=== PATIENT | male | born 1970 | race Caucasian/White ===

== ENCOUNTER 2018-08-26 09:50 | Emergency (ER) | payer MEDICAID, OTHER ==
[~2018-08-26] VITALS: Ht 188 cm; Wt 102.9 kg
[~2018-08-26 09:50] MED LIST: CLIN300C85 PO; HYDR-3964 PO; HYDR-4383 PO
[2018-08-26] MEDS ORDERED: CLIN150C2 PO (10:51)
[2018-08-26] MEDS ORDERED: ketorolac trometh inj. 60 MG/2 ML VIAL IM ONE (10:55)
[2018-08-26 11:11] VITALS: BP 138/94
== END 2018-08-26 11:12 | disposition home or self-care (01) ==
LOC: ER 09:50
DX: L02.211 Cutaneous abscess of abdominal wall (principal); L73.8 Other specified follicular disorders; J45.909 Unspecified asthma, uncomplicated; Z86.14 Personal history of Methicillin resistant Staphylococcus aureus infection; Z79.899 Other long term (current) drug therapy
CPT/HCPCS: 10060; 96372; 99283; J1885

== ENCOUNTER 2019-11-28 01:01 | Emergency (ER) | payer MEDICAID, OTHER ==
[~2019-11-28] VITALS: Ht 188 cm; Wt 100.0 kg
[~2019-11-28 01:01] MED LIST changes: +CLIN-97 PO; -CLIN300C85 PO
[2019-11-28 01:30] VITALS: BP 131/90
[2019-11-28] MEDS ORDERED: ondansetron 4mg rapidly disintigrating tab PO ONE (02:05)
[2019-11-28] MEDS ORDERED: HYDROcodone/acetaminophen 10/325mg tab PO ONE (02:05)
[2019-11-28] MEDS ORDERED: HYDR-3965 PO (02:53)
[2019-11-28] MEDS ORDERED: ONDA4TAB6 PO (02:53)
[2019-11-29] MEDS ORDERED: HYDR-3965 PO (23:36)
[2019-11-29] MEDS ORDERED: ONDA-103 PO (23:36)
== END 2019-11-28 03:38 | disposition home or self-care (01) ==
LOC: ER 01:02
DX: M53.3 Sacrococcygeal disorders, not elsewhere classified (principal); J45.909 Unspecified asthma, uncomplicated; Z86.14 Personal history of Methicillin resistant Staphylococcus aureus infection; Z72.89 Other problems related to lifestyle; Z79.2 Long term (current) use of antibiotics; Z79.899 Other long term (current) drug therapy
CPT/HCPCS: 72131; 72192; 99285

== ENCOUNTER 2019-11-29 21:31 | Emergency (ER) | payer MEDICAID, OTHER ==
[~2019-11-29] VITALS: Ht 188 cm; Wt 100.0 kg
[~2019-11-29 21:31] MED LIST changes: +HYDR-3965 PO; +ONDA4TAB6 PO
--- NOTE | 2019-11-29 22:18 | NUR ---
Pt reports that fever and cough started today. He denies being exposed to anyone sick recently and denies COVID-19 exposure. He states he has been staying at home in [place]. CRN informed of fever and cough, hepa filter placed in room and set to negative pressure. Door was closed.
[2019-11-29] MEDS ORDERED: normal saline 1000ML IV soln IV ONE (22:50)
[2019-11-29] MEDS ORDERED: ibuprofen tablet 400 MG TABLET PO ONE (23:20)
[2019-11-29 23:26] LABS: BASOPHILS % (AUTO) 0.1 % (0-1); EOSINOPHILS # (AUTO) 0.1 X10'3 (0-0.9); EOSINOPHILS % (AUTO) 0.7 % (0-6); HEMATOCRIT 38.5 % (42.0-52.0); HEMOGLOBIN 13.1 g/dl (14.0-17.9); LYMPHOCYTES # (AUTO) 0.4 X10'3 (1.1-4.8); LYMPHOCYTES % (AUTO) 2.5 % (21-51); MEAN CORPUSCULAR HGB CONC 33.9 g/dL (33.0-36.5); MEAN CORPUSCULAR VOLUME 91.5 FL (78-98); MEAN PLATELET VOLUME 6.1 FL (7.4-10.4); MONOCYTES % (AUTO) 6.8 % (2-12); NEUTROPHILS # (AUTO) 13.5 X10'3 (1.8-7.7); NEUTROPHILS % (AUTO) 89.9 % (42-75); PLATELET COUNT 383 X10'3 (140-440); RED BLOOD COUNT 4.21 X10'6 (4.70-6.10); RED CELL DISTRIBUTION WIDTH 13.7 % (11.5-14.5)
[2019-11-29 23:32] LABS: CLARITY,URINE CLEAR (Clear); COLOR,URINE YELLOW (Yellow); GLUCOSE, URINE NEGATIVE (Neg); KETONES,URINE NEGATIVE (Neg); LEUKOCYTE ESTERASE ,URINE NEGATIVE (Neg); NITRITES, URINE NEGATIVE (Neg); OCCULT BLOOD,URINE NEGATIVE (Neg); PH,URINE 6.5 (4.8-8.0); PROTEIN,URINE TRACE mg/dl (Neg); UROBILINOGEN,URINE >=8.0 E.U/dL (0.2-1.0)
[2019-11-29] MEDS ORDERED: ONDA-103 PO (23:36)
[2019-11-29] MEDS ORDERED: HYDR-3965 PO (23:36)
[2019-11-29 23:38] LABS: UA COLLECTION TYPE URINAL
[2019-11-29 23:40] LABS: BACTERIA,URINE NONE SEEN /HPF (Neg); RBC,URINE 0-2 /HPF (0-2); SQUAMOUS EPITHELIAL CELL,UR FEW /LPF (FEW); WBC,URINE 0-4 /HPF (0-4)
[2019-11-29 23:41] LABS: ALANINE AMINOTRANSFERASE 24 U/L (12-78); ALBUMIN 2.4 G/DL (3.4-5.0); ALBUMIN/GLOBULIN RATIO 0.5 (1.1-1.5); ALKALINE PHOSPHATASE 103 IU/L (46-116); ANION GAP 7 (8-16); ASPARTATE AMINO TRANSFERASE 18 U/L (10-37); BILIRUBIN,TOTAL 0.4 MG/DL (0.1-1.0); BLOOD UREA NITROGEN 13 MG/DL (7-18); BUN/CREATININE RATIO 14.1 (5.4-32.0); CALCIUM 8.3 MG/DL (8.5-10.1); CHLORIDE 98 MMOL/L (99-107); CREATININE 0.92 MG/DL (0.60-1.10); GLUCOSE 116 MG/DL (70-104); SODIUM 133 MMOL/L (135-145); TOTAL CARBON DIOXIDE 28.2 MMOL/L (24-32); TOTAL PROTEIN 7.3 G/DL (6.4-8.2); eGFR 88 ML/MIN
[2019-11-30] MEDS ORDERED: cyclobenzaprine 10mg tablet PO ONE (00:20)
--- NOTE | 2019-11-30 02:05 | NUR ---
Called report to Elza WHITT at [facility] ER and relayed all pertinent information.
[2019-11-30 02:42] VITALS: BP 141/90
== END 2019-11-30 02:44 | disposition short-term general hospital (02) ==
LOC: ER 21:32
DX: M54.5 Low back pain (principal); Z20.828 Contact with and (suspected) exposure to other viral communicable diseases; R33.9 Retention of urine, unspecified; R50.9 Fever, unspecified; R05 Cough; R30.0 Dysuria; I10 Essential (primary) hypertension; J45.909 Unspecified asthma, uncomplicated; F17.200 Nicotine dependence, unspecified, uncomplicated; Z86.14 Personal history of Methicillin resistant Staphylococcus aureus infection; Z72.89 Other problems related to lifestyle; Z79.899 Other long term (current) drug therapy
CPT/HCPCS: 36415; 71046; 80053; 81001; 83605; 84145; 85025; 87040; 87077; 87186; 87635; 99285; J7030

== ENCOUNTER 2019-12-01 18:52 | Inpatient (IN) | payer MEDICAID, OTHER ==
[~2019-12-01] VITALS: Ht 185.4 cm; Wt 102.1 kg
[~2019-12-01 18:52] MED LIST changes: -CLIN-97 PO; -HYDR-3964 PO; -HYDR-4383 PO; +ONDA-103 PO; -ONDA4TAB6 PO
[2019-12-01] MEDS ORDERED: acetaminophen 325mg tablet PO ONE (19:10)
[2019-12-01] MEDS ORDERED: CefTRIAXone 2gm/D5W 50ml 50 ML IV ONE (19:20)
[2019-12-01] MEDS ORDERED: normal saline 1000ML IV soln IV ONE (19:20)
[2019-12-01] MEDS ORDERED: ketorolac trometh. 30mg/ml inj. IV ONE (19:40)
[2019-12-01 19:49] LABS: BASOPHILS % (AUTO) 0.1 % (0-1); EOSINOPHILS % (AUTO) 0.1 % (0-6); HEMATOCRIT 35.8 % (42.0-52.0); HEMOGLOBIN 12.1 g/dl (14.0-17.9); LYMPHOCYTES # (AUTO) 0.5 X10'3 (1.1-4.8); LYMPHOCYTES % (AUTO) 3.8 % (21-51); MEAN CORPUSCULAR HEMOGLOBIN 30.6 PG (27.0-31.0); MEAN CORPUSCULAR HGB CONC 33.9 g/dL (33.0-36.5); MEAN CORPUSCULAR VOLUME 90.4 FL (78-98); MEAN PLATELET VOLUME 6.1 FL (7.4-10.4); MONOCYTES # (AUTO) 0.9 X10'3 (0-0.9); MONOCYTES % (AUTO) 7.4 % (2-12); NEUTROPHILS # (AUTO) 10.5 X10'3 (1.8-7.7); NEUTROPHILS % (AUTO) 88.6 % (42-75); PLATELET COUNT 324 X10'3 (140-440); RED BLOOD COUNT 3.96 X10'6 (4.70-6.10); RED CELL DISTRIBUTION WIDTH 13.9 % (11.5-14.5); WHITE BLOOD COUNT 11.9 X10'3 (4.5-11.0)
[2019-12-01 20:00] LABS: ALANINE AMINOTRANSFERASE 30 U/L (12-78); ALBUMIN 1.9 G/DL (3.4-5.0); ALBUMIN/GLOBULIN RATIO 0.4 (1.1-1.5); ALKALINE PHOSPHATASE 109 IU/L (46-116); ANION GAP 7 (8-16); ASPARTATE AMINO TRANSFERASE 33 U/L (10-37); BILIRUBIN,TOTAL 0.5 MG/DL (0.1-1.0); BLOOD UREA NITROGEN 15 MG/DL (7-18); BUN/CREATININE RATIO 14.7 (5.4-32.0); CALCIUM 8.1 MG/DL (8.5-10.1); CHLORIDE 95 MMOL/L (99-107); CREATININE 1.02 MG/DL (0.60-1.10); GLUCOSE 142 MG/DL (70-104); MAGNESIUM 1.9 MG/DL (1.5-2.4); POTASSIUM 3.7 MMOL/L (3.5-5.1); SODIUM 130 MMOL/L (135-145); TOTAL CARBON DIOXIDE 28.2 MMOL/L (24-32); TOTAL PROTEIN 6.6 G/DL (6.4-8.2); eGFR 78 ML/MIN
--- NOTE | 2019-12-01 20:18 | NUR ---
PT REPORTING 10/10 PAIN AND NEWLY CHEST PAIN. ED MD BOYLE NOTIFIED AND EKG ORDERED.
[2019-12-01] MEDS ORDERED: ondansetron/PF 4mg/2ml inj IV PRN (20:20)
[2019-12-01] MEDS: HYDROmorphone 1 mg/ml syringe IV PRN ×2 (20:29→20:57)
[2019-12-01 20:47] LABS: TOTAL CELLS COUNTED 100
[2019-12-01 20:48] LABS: PLATELET ESTIMATE NORMAL
[2019-12-01 21:00] LABS: CLARITY,URINE CLEAR (Clear); COLOR,URINE YELLOW (Yellow); GLUCOSE, URINE NEGATIVE (Neg); KETONES,URINE NEGATIVE (Neg); LEUKOCYTE ESTERASE ,URINE NEGATIVE (Neg); NITRITES, URINE NEGATIVE (Neg); OCCULT BLOOD,URINE SMALL (Neg); PROTEIN,URINE TRACE mg/dl (Neg)
[2019-12-01 21:06] LABS: UA COLLECTION TYPE CLN CATCH MIDSTREAM
[2019-12-01 21:08] LABS: BACTERIA,URINE NONE SEEN /HPF (Neg); RBC,URINE 0-2 /HPF (0-2); SQUAMOUS EPITHELIAL CELL,UR FEW /LPF (FEW); WBC,URINE 0-4 /HPF (0-4)
[2019-12-01] MEDS ORDERED: vancomycin/NS 1 GM ADD-VANTAGE 250 ML IV ONE (21:40)
[2019-12-01 21:50] LABS: ETHANOL < 0.010 GM/DL (0.0-0.010)
[2019-12-01 21:58] LABS: URINE AMPHETAMINE SCREEN POSITIVE (Neg); URINE BARBITUATE SCREEN NEGATIVE (Neg); URINE BENZODIAZEPINES SCREEN NEGATIVE (Neg); URINE CANNABINOID SCREEN POSITIVE (Neg); URINE COCAINE SCREEN NEGATIVE (Neg); URINE METHADONE SCREEN NEGATIVE (Neg); URINE OPIATE SCREEN POSITIVE (Neg); URINE PHENCYCLIDINE SCREEN NEGATIVE (Neg)
[2019-12-01] MEDS ORDERED: magnesium hydroxide 30ml (MOM) UD suspension PO PRN (22:10)
[2019-12-01] MEDS ORDERED: morphine 2 MG/ML inj. syringe IV PRN (22:10)
[2019-12-01] MEDS ORDERED: HYDROcodone/acetaminophen 5mg/325mg tablet PO PRN (22:15)
--- NOTE | 2019-12-01 22:39 | NUR ---
PER DR. REED; NO ORDER FOR 3 HOUR BLOOD CULTURES AND LACTIC
[2019-12-01 22:45] VITALS: BP 120/73
--- NOTE | 2019-12-01 22:45 | NUR ---
Patient in room PCU 3022. I have received report from PERI BRICE IN ED and had the opportunity to ask questions and assume patient care.
[2019-12-02] MEDS: morphine 2 MG/ML inj. syringe IV PRN ×2 (00:47→10:00)
[2019-12-02 03:00] VITALS: BP 135/87
[2019-12-02] MEDS: acetaminophen 325mg tablet PO PRN ×3 (03:25→22:16)
[2019-12-02] MEDS ORDERED: morphine 4 MG/ML inj SYRINge IV ONE (03:35)
[2019-12-02 06:00] VITALS: BP 107/71
--- NOTE | 2019-12-02 06:30 | NUR ---
Patient in room PCU 3022. I have received report from Ze WHITT and had the opportunity to ask questions and assume patient care.
--- NOTE | 2019-12-02 06:33 | NUR ---
Problems reprioritized. Patient report given, questions answered & plan of care reviewed with PERI JONES AND PERI CANCINO.
[2019-12-02 06:38] LABS: BASOPHILS % (AUTO) 0.1 % (0-1); EOSINOPHILS % (AUTO) 0.1 % (0-6); HEMATOCRIT 33.1 % (42.0-52.0); HEMOGLOBIN 11.1 g/dl (14.0-17.9); LYMPHOCYTES # (AUTO) 0.3 X10'3 (1.1-4.8); LYMPHOCYTES % (AUTO) 1.9 % (21-51); MEAN CORPUSCULAR HEMOGLOBIN 30.4 PG (27.0-31.0); MEAN CORPUSCULAR HGB CONC 33.6 g/dL (33.0-36.5); MEAN CORPUSCULAR VOLUME 90.6 FL (78-98); MEAN PLATELET VOLUME 6.1 FL (7.4-10.4); MONOCYTES # (AUTO) 0.9 X10'3 (0-0.9); MONOCYTES % (AUTO) 5.9 % (2-12); NEUTROPHILS # (AUTO) 13.7 X10'3 (1.8-7.7); PLATELET COUNT 320 X10'3 (140-440); RED BLOOD COUNT 3.65 X10'6 (4.70-6.10); WHITE BLOOD COUNT 14.9 X10'3 (4.5-11.0)
[2019-12-02 06:56] LABS: ALANINE AMINOTRANSFERASE 34 U/L (12-78); ALBUMIN 1.8 G/DL (3.4-5.0); ALBUMIN/GLOBULIN RATIO 0.4 (1.1-1.5); ALKALINE PHOSPHATASE 106 IU/L (46-116); ANION GAP 7 (8-16); ASPARTATE AMINO TRANSFERASE 32 U/L (10-37); BILIRUBIN,TOTAL 0.5 MG/DL (0.1-1.0); BLOOD UREA NITROGEN 16 MG/DL (7-18); BUN/CREATININE RATIO 18.8 (5.4-32.0); CALCIUM 7.9 MG/DL (8.5-10.1); CHLORIDE 100 MMOL/L (99-107); CREATININE 0.85 MG/DL (0.60-1.10); GLUCOSE 107 MG/DL (70-104); POTASSIUM 3.6 MMOL/L (3.5-5.1); SODIUM 132 MMOL/L (135-145); TOTAL CARBON DIOXIDE 24.6 MMOL/L (24-32); TOTAL PROTEIN 6.2 G/DL (6.4-8.2); eGFR > 90 ML/MIN
[2019-12-02] MEDS ORDERED: VANCOMYCIN 1,500MG inj. 1,500 MG in normal saline 500ml IV soln 500 ML IV SCH (08:00)
[2019-12-02] MEDS: heparin, porcine 5000 units/ml vial SQ SCH ×2 (08:20→20:36)
--- NOTE | 2019-12-02 08:44 | NUR ---
Critical lab: Positive blood cultures. Drawn 11/30 IV site. Positive at 12 hours. Gram positive cocci in clusters in aerobic bottle. Notified primary PERI Flores.
--- NOTE | 2019-12-02 08:52 | NUR ---
PAGER ID: [phone] MESSAGE: Re: Louie Huerta Jr, Room: 3022. Positive blood cultures: Gram positive Cocci in clusters in aerobic bottle. Drawn 11/30 from [facility] #[id number] Dr. Calderon paged concerning Pt's positive blood cultures.
[2019-12-02] MEDS ORDERED: pneumococcal 23-VAL P-sac vacc 25 mcg/0.5ml vial IMVAC ONE (10:00)
[2019-12-02 11:00] VITALS: BP 146/74
[2019-12-02] MEDS: HYDROmorphone 1 mg/ml syringe IV PRN ×3 (11:20→20:49)
[2019-12-02] MEDS: cefazolin/dext.iso 2gm/50ml 50 ML IV SCH (12:33)
[2019-12-02] MEDS ORDERED: HYDROmorphone inj. 0.5 MG/0.5 ML DISP.SYRIN IV PRN (13:10)
[2019-12-02] MEDS: HYDROcodone/acetaminophen 10/325mg tab PO PRN ×2 (13:22→22:10)
[2019-12-02] MEDS: normal saline 1000ml 1,000 ML IV SCH ×2 (13:23→20:57)
[2019-12-02 15:00] VITALS: BP 122/79
[2019-12-02 18:00] VITALS: BP 118/72
--- NOTE | 2019-12-02 18:00 | NUR ---
[place]rientee documentation: I have reviewed and agree with all interventions, assessments performed and documented by Lissetet Granger.
--- NOTE | 2019-12-02 18:14 | NUR ---
PAGER ID: [phone] MESSAGE: Re: Louie Huerta. 3022A. FYI Blood culture positive. Gram+ Cocci in clusters, Aerobic. 11/30 2324 from left arm. Same as earlier positive blood culture. PERI Mclaughlin. U #[id number]
--- NOTE | 2019-12-02 18:15 | NUR ---
Problems reprioritized. Patient report given, questions answered & plan of care reviewed with Gini WHITT.
--- NOTE | 2019-12-02 18:28 | NUR ---
Problems reprioritized. Patient report given, questions answered & plan of care reviewed with PERI Rios.
[2019-12-02] MEDS ORDERED: CefTRIAXone/D5W-Rocephin 1gm 50 ML IV SCH (20:00)
[2019-12-02] MEDS: docusate sod 100mg capsule PO SCH (20:36)
[2019-12-02] MEDS: lactobacillus rhamnosus 10,000 MMU CELLS/CAPSULE PO SCH (20:36)
[2019-12-02 22:00] VITALS: BP 135/83
[2019-12-03] MEDS: cefazolin/dext.iso 2gm/50ml 50 ML IV SCH ×3 (00:36→15:54)
[2019-12-03] MEDS: HYDROmorphone 1 mg/ml syringe IV PRN ×4 (01:05→21:26)
[2019-12-03 02:00] VITALS: BP 141/86
[2019-12-03] MEDS: HYDROcodone/acetaminophen 10/325mg tab PO PRN ×3 (03:14→17:44)
[2019-12-03 06:00] VITALS: BP_SYST 140; BP_SYST 141; BP_DIAS 79; BP_DIAS 85
--- NOTE | 2019-12-03 06:10 | NUR ---
Patient in room PCU 3022. I have received report from Gini WHITT and had the opportunity to ask questions and assume patient care.
--- NOTE | 2019-12-03 06:12 | NUR ---
Patient in room PCU 3022. I have received report from PERI Branham and had the opportunity to ask questions and assume patient care.
[2019-12-03] MEDS ORDERED: VANCOMYCIN LEVEL IV ONE (07:30)
[2019-12-03 07:53] LABS: BASOPHILS % (AUTO) 0.2 % (0-1); EOSINOPHILS % (AUTO) 0.1 % (0-6); HEMATOCRIT 33.7 % (42.0-52.0); HEMOGLOBIN 11.2 g/dl (14.0-17.9); LYMPHOCYTES # (AUTO) 0.3 X10'3 (1.1-4.8); LYMPHOCYTES % (AUTO) 2.3 % (21-51); MEAN CORPUSCULAR HEMOGLOBIN 30.1 PG (27.0-31.0); MEAN CORPUSCULAR HGB CONC 33.3 g/dL (33.0-36.5); MEAN CORPUSCULAR VOLUME 90.4 FL (78-98); MEAN PLATELET VOLUME 6.2 FL (7.4-10.4); MONOCYTES # (AUTO) 0.7 X10'3 (0-0.9); MONOCYTES % (AUTO) 4.7 % (2-12); NEUTROPHILS # (AUTO) 13.3 X10'3 (1.8-7.7); NEUTROPHILS % (AUTO) 92.7 % (42-75); PLATELET COUNT 362 X10'3 (140-440); RED BLOOD COUNT 3.73 X10'6 (4.70-6.10); RED CELL DISTRIBUTION WIDTH 14.2 % (11.5-14.5); WHITE BLOOD COUNT 14.3 X10'3 (4.5-11.0)
[2019-12-03 08:07] LABS: ALANINE AMINOTRANSFERASE 30 U/L (12-78); ALBUMIN 1.8 G/DL (3.4-5.0); ALBUMIN/GLOBULIN RATIO 0.4 (1.1-1.5); ALKALINE PHOSPHATASE 119 IU/L (46-116); ANION GAP 7 (8-16); ASPARTATE AMINO TRANSFERASE 32 U/L (10-37); BILIRUBIN,TOTAL 0.6 MG/DL (0.1-1.0); BLOOD UREA NITROGEN 12 MG/DL (7-18); BUN/CREATININE RATIO 15.4 (5.4-32.0); CALCIUM 7.8 MG/DL (8.5-10.1); CHLORIDE 97 MMOL/L (99-107); CREATININE 0.78 MG/DL (0.60-1.10); GLUCOSE 125 MG/DL (70-104); POTASSIUM 3.7 MMOL/L (3.5-5.1); SODIUM 133 MMOL/L (135-145); TOTAL CARBON DIOXIDE 29.2 MMOL/L (24-32); TOTAL PROTEIN 6.6 G/DL (6.4-8.2); VANCOMYCIN,TROUGH 1.2 UG/ML (6.0-14.0); eGFR > 90 ML/MIN
[2019-12-03] MEDS: docusate sod 100mg capsule PO SCH ×2 (08:28→19:49)
[2019-12-03] MEDS: magnesium hydroxide 30ml (MOM) UD suspension PO PRN (08:28)
[2019-12-03] MEDS: lactobacillus rhamnosus 10,000 MMU CELLS/CAPSULE PO SCH ×2 (08:28→19:49)
[2019-12-03] MEDS: heparin, porcine 5000 units/ml vial SQ SCH ×2 (08:29→19:49)
[2019-12-03] MEDS: normal saline 1000ml 1,000 ML IV SCH ×2 (08:45→19:48)
[2019-12-03 11:00] VITALS: BP 141/85
--- NOTE | 2019-12-03 12:44 | NUR ---
PAGER ID: [phone] MESSAGE: Re: Louie Huerta. Rm 2331. KUB resulted. Do you want us to hold relistor inj. due to results of KUB? - PERI Mclaughlin. [facility] #[id number]
--- NOTE | 2019-12-03 12:47 | NUR ---
Spoke with Dr. Stafford regarding KUB results and Relistor. MD aware of possible illeus and wants the Relistor administered. Will monitor for nausea/vomiting and worsening abdominal pain.
[2019-12-03] MEDS: methylnaltrexone br 12mg/0.6ml inj***SubQ only SQ SCH (12:51)
[2019-12-03 15:00] VITALS: BP 169/79
[2019-12-03] MEDS: bisacodyl 10mg suppository rectal RC PRN (15:54)
[2019-12-03] MEDS ORDERED: lactulose 20gm/30ml cup PO ONE (16:05)
[2019-12-03] MEDS ORDERED: thiamine inj. 100 MG in normal saline 100ml IV soln 100 ML IV ONE (16:55)
[2019-12-03] MEDS ORDERED: haloperidol lactate 5mg/ml inj IM PRN (16:55)
[2019-12-03] MEDS ORDERED: LORazepam 2 mg/ml vial IV PRN (16:55)
[2019-12-03] MEDS ORDERED: iohexol 300mg/ml 100ml inj. ONE (17:23)
[2019-12-03 18:00] VITALS: BP 143/78
--- NOTE | 2019-12-03 18:00 | NUR ---
Orientee documentation: I have reviewed and agree with all interventions, assessments performed and documented by Lissette Granger.
--- NOTE | 2019-12-03 18:10 | NUR ---
Problems reprioritized. Patient report given, questions answered & plan of care reviewed with Geneva WHITT.
--- NOTE | 2019-12-03 18:27 | NUR ---
Problems reprioritized. Patient report given, questions answered & plan of care reviewed with PERI Bean.
--- NOTE | 2019-12-03 18:41 | NUR ---
Patient in room PCU 3022. I have received report from Mark WHITT and had the opportunity to ask questions and assume patient care.
[2019-12-03] MEDS: acetaminophen 325mg tablet PO PRN (19:49)
[2019-12-03 22:00] VITALS: BP 138/84
[2019-12-04] MEDS: cefazolin/dext.iso 2gm/50ml 50 ML IV SCH ×3 (00:57→16:16)
[2019-12-04] MEDS: HYDROcodone/acetaminophen 10/325mg tab PO PRN ×4 (01:35→21:47)
[2019-12-04 02:00] VITALS: BP 131/81
[2019-12-04 06:00] VITALS: BP 145/88
[2019-12-04] MEDS: HYDROmorphone 1 mg/ml syringe IV PRN ×2 (06:00→13:35)
--- NOTE | 2019-12-04 06:00 | NUR ---
Patient in room PCU 3022. I have received report from Geneva WHITT and had the opportunity to ask questions and assume patient care.
--- NOTE | 2019-12-04 06:17 | NUR ---
Problems reprioritized. Patient report given, questions answered & plan of care reviewed with Mark WHITT and Lissette WHITT.
--- NOTE | 2019-12-04 06:20 | NUR ---
Patient in room PCU 3022. I have received report from Geneva WHITT, and had the opportunity to ask questions and assume patient care.
[2019-12-04 06:37] LABS: BASOPHILS % (AUTO) 0.1 % (0-1); EOSINOPHILS % (AUTO) 0.2 % (0-6); HEMATOCRIT 31.5 % (42.0-52.0); HEMOGLOBIN 10.5 g/dl (14.0-17.9); LYMPHOCYTES # (AUTO) 0.4 X10'3 (1.1-4.8); LYMPHOCYTES % (AUTO) 2.8 % (21-51); MEAN CORPUSCULAR HEMOGLOBIN 30.2 PG (27.0-31.0); MEAN CORPUSCULAR HGB CONC 33.5 g/dL (33.0-36.5); MEAN CORPUSCULAR VOLUME 90.3 FL (78-98); MEAN PLATELET VOLUME 6.7 FL (7.4-10.4); MONOCYTES # (AUTO) 0.6 X10'3 (0-0.9); MONOCYTES % (AUTO) 3.6 % (2-12); NEUTROPHILS # (AUTO) 14.8 X10'3 (1.8-7.7); NEUTROPHILS % (AUTO) 93.3 % (42-75); PLATELET COUNT 330 X10'3 (140-440); RED BLOOD COUNT 3.48 X10'6 (4.70-6.10); RED CELL DISTRIBUTION WIDTH 13.8 % (11.5-14.5); WHITE BLOOD COUNT 15.9 X10'3 (4.5-11.0)
[2019-12-04 06:42] LABS: ALANINE AMINOTRANSFERASE 23 U/L (12-78); ALBUMIN 1.6 G/DL (3.4-5.0); ALBUMIN/GLOBULIN RATIO 0.4 (1.1-1.5); ALKALINE PHOSPHATASE 117 IU/L (46-116); AMYLASE 29 U/L (25-115); ANION GAP 2 (8-16); ASPARTATE AMINO TRANSFERASE 30 U/L (10-37); BILIRUBIN,TOTAL 0.5 MG/DL (0.1-1.0); BLOOD UREA NITROGEN 11 MG/DL (7-18); BUN/CREATININE RATIO 15.9 (5.4-32.0); CALCIUM 7.8 MG/DL (8.5-10.1); CHLORIDE 100 MMOL/L (99-107); CREATININE 0.69 MG/DL (0.60-1.10); GLUCOSE 100 MG/DL (70-104); LIPASE 83 U/L (73-393); PHOSPHORUS 2.1 MG/DL (2.3-4.5); SODIUM 133 MMOL/L (135-145); TOTAL CARBON DIOXIDE 31.3 MMOL/L (24-32); TOTAL PROTEIN 5.9 G/DL (6.4-8.2); eGFR > 90 ML/MIN
[2019-12-04] MEDS ORDERED: folic acid 1mg/0.2ml inj IV SCH (08:00)
[2019-12-04] MEDS ORDERED: MVI, adult No.4 with vit. K 10 ML in dextrose 5% water 500ml 500 ML IV SCH ×2 (08:00)
[2019-12-04] MEDS ORDERED: thiamine inj. 100 MG in normal saline 100ml IV soln 100 ML IV SCH (08:00)
[2019-12-04] MEDS: lactobacillus rhamnosus 10,000 MMU CELLS/CAPSULE PO SCH ×2 (08:03→21:44)
[2019-12-04] MEDS: thiamine 100mg tablet PO SCH (08:03)
[2019-12-04] MEDS: multivitamins, therapeutics tablet PO SCH (08:04)
[2019-12-04] MEDS: docusate sod 100mg capsule PO SCH ×2 (08:04→20:00)
[2019-12-04] MEDS: heparin, porcine 5000 units/ml vial SQ SCH ×2 (08:04→21:44)
[2019-12-04] MEDS: folic acid 1mg tablet PO SCH (08:04)
[2019-12-04] MEDS: magnesium hydroxide 30ml (MOM) UD suspension PO PRN (09:36)
[2019-12-04] MEDS: bisacodyl 10mg suppository rectal RC PRN (10:27)
[2019-12-04 11:00] VITALS: BP 141/88
[2019-12-04] MEDS: normal saline 1000ml 1,000 ML IV SCH ×2 (14:55→16:16)
[2019-12-04 15:00] VITALS: BP 169/88
[2019-12-04 18:00] VITALS: BP 150/87
--- NOTE | 2019-12-04 18:00 | NUR ---
Orientee documentation: I have reviewed and agree with all interventions, assessments performed and documented by Lissette Granger RN.
--- NOTE | 2019-12-04 18:00 | NUR ---
Problems reprioritized. Patient report given, questions answered & plan of care reviewed with Pradip WHITT .
--- NOTE | 2019-12-04 18:19 | NUR ---
Problems reprioritized. Patient report given, questions answered & plan of care reviewed with PERI Garcia
--- NOTE | 2019-12-04 18:25 | NUR ---
Patient in room PCU 3022. I have received report from Mark WHITT & Lissette RN and had the opportunity to ask questions and assume patient care.
[2019-12-04] MEDS: diatr meglu/diatrizoate 30ml oral sol.-(3 dose) bottle PO SCH (21:43)
[2019-12-04 22:00] VITALS: BP 141/83
[2019-12-05] MEDS: normal saline 1000ml 1,000 ML IV SCH ×3 (00:55→23:05)
[2019-12-05] MEDS: LORazepam 2 mg/ml vial IV PRN ×2 (02:49→15:37)
[2019-12-05] MEDS: cefazolin/dext.iso 2gm/50ml 50 ML IV SCH ×4 (02:51→23:36)
[2019-12-05 03:00] VITALS: BP 162/88
[2019-12-05] MEDS: acetaminophen 325mg tablet PO PRN ×2 (04:00→16:57)
[2019-12-05 06:28] LABS: BASOPHILS # (AUTO) 0.1 X10'3 (0-0.2); BASOPHILS % (AUTO) 0.5 % (0-1); EOSINOPHILS # (AUTO) 0.1 X10'3 (0-0.9); EOSINOPHILS % (AUTO) 0.8 % (0-6); HEMOGLOBIN 10.4 g/dl (14.0-17.9); LYMPHOCYTES # (AUTO) 0.6 X10'3 (1.1-4.8); LYMPHOCYTES % (AUTO) 4.3 % (21-51); MEAN CORPUSCULAR HEMOGLOBIN 30.5 PG (27.0-31.0); MEAN CORPUSCULAR HGB CONC 33.5 g/dL (33.0-36.5); MEAN CORPUSCULAR VOLUME 91.1 FL (78-98); MEAN PLATELET VOLUME 6.8 FL (7.4-10.4); MONOCYTES # (AUTO) 0.6 X10'3 (0-0.9); MONOCYTES % (AUTO) 4.7 % (2-12); NEUTROPHILS # (AUTO) 11.6 X10'3 (1.8-7.7); NEUTROPHILS % (AUTO) 89.7 % (42-75); PLATELET COUNT 366 X10'3 (140-440); RED BLOOD COUNT 3.41 X10'6 (4.70-6.10); RED CELL DISTRIBUTION WIDTH 14.3 % (11.5-14.5)
--- NOTE | 2019-12-05 06:30 | NUR ---
Problems reprioritized. Patient report given, questions answered & plan of care reviewed with Mary Jo WHITT.
[2019-12-05 06:34] LABS: ALANINE AMINOTRANSFERASE 25 U/L (12-78); ALBUMIN 1.6 G/DL (3.4-5.0); ALBUMIN/GLOBULIN RATIO 0.4 (1.1-1.5); ALKALINE PHOSPHATASE 111 IU/L (46-116); AMYLASE 27 U/L (25-115); ANION GAP 6 (8-16); ASPARTATE AMINO TRANSFERASE 34 U/L (10-37); BILIRUBIN,TOTAL 0.5 MG/DL (0.1-1.0); BLOOD UREA NITROGEN 12 MG/DL (7-18); BUN/CREATININE RATIO 18.2 (5.4-32.0); CALCIUM 7.6 MG/DL (8.5-10.1); CHLORIDE 99 MMOL/L (99-107); CREATININE 0.66 MG/DL (0.60-1.10); GLUCOSE 95 MG/DL (70-104); LIPASE 84 U/L (73-393); PHOSPHORUS 2.5 MG/DL (2.3-4.5); POTASSIUM 3.2 MMOL/L (3.5-5.1); SODIUM 134 MMOL/L (135-145); TOTAL CARBON DIOXIDE 29.2 MMOL/L (24-32); TOTAL PROTEIN 5.6 G/DL (6.4-8.2); eGFR > 90 ML/MIN
[2019-12-05 07:00] VITALS: BP 139/88
--- NOTE | 2019-12-05 07:10 | NUR ---
Transferred pt to Surgical with Karyna, who gave chart to charge
[2019-12-05] MEDS: diatr meglu/diatrizoate 30ml oral sol.-(3 dose) bottle PO SCH ×2 (07:29→10:09)
[2019-12-05] MEDS: HYDROmorphone 1 mg/ml syringe IV PRN (07:35)
[2019-12-05] MEDS: multivitamins, therapeutics tablet PO SCH (08:00)
[2019-12-05] MEDS: docusate sod 100mg capsule PO SCH ×2 (08:00→19:42)
[2019-12-05] MEDS: lactobacillus rhamnosus 10,000 MMU CELLS/CAPSULE PO SCH ×2 (08:00→19:41)
[2019-12-05] MEDS: thiamine 100mg tablet PO SCH ×2 (08:00→14:24)
[2019-12-05] MEDS: folic acid 1mg tablet PO SCH (08:00)
[2019-12-05] MEDS ORDERED: potassium CL 10mEq/100ml bag 100 ML IV PRN (09:20)
[2019-12-05] MEDS ORDERED: magnesium 4gm in 100ml NS 100 ML IV PRN (09:20)
[2019-12-05] MEDS ORDERED: potassium Cl 20 mEq SR tablet PO PRN (09:20)
[2019-12-05] MEDS: methylnaltrexone br 12mg/0.6ml inj***SubQ only SQ SCH (09:31)
[2019-12-05] MEDS: potassium Cl 20 mEq SR tablet PO PRN ×3 (09:32→19:42)
[2019-12-05] MEDS: heparin, porcine 5000 units/ml vial SQ SCH ×2 (09:32→19:42)
[2019-12-05 09:37] LABS: MAGNESIUM 2.1 MG/DL (1.5-2.4)
[2019-12-05] MEDS: K and/or MAG REPLACEMENT MC SCH ×2 (09:38→18:55)
[2019-12-05 11:00] VITALS: BP 152/92
[2019-12-05] MEDS: magnesium hydroxide 30ml (MOM) UD suspension PO PRN (15:39)
[2019-12-05 18:15] VITALS: BP 137/88
--- NOTE | 2019-12-05 18:39 | NUR ---
Problems reprioritized. Patient report given, questions answered & plan of care reviewed with Aura WHITT.
--- NOTE | 2019-12-05 18:44 | NUR ---
Patient in room [facility]ONDRA 344. I have received report from PERI Camargo and had the opportunity to ask questions and assume patient care.
[2019-12-05] MEDS: lactulose 20gm/30ml cup PO SCH (19:42)
[2019-12-05] MEDS: HYDROcodone/acetaminophen 10/325mg tab PO PRN (19:54)
[2019-12-06 00:31] VITALS: BP 159/90
[2019-12-06] MEDS: HYDROcodone/acetaminophen 10/325mg tab PO PRN ×3 (01:09→16:31)
[2019-12-06] MEDS: lactulose 20gm/30ml cup PO SCH ×4 (01:09→20:00)
[2019-12-06] MEDS: HYDROmorphone 1 mg/ml syringe IV PRN ×4 (03:10→20:00)
[2019-12-06 03:20] LABS: BASOPHILS # (AUTO) 0.1 X10'3 (0-0.2); BASOPHILS % (AUTO) 0.7 % (0-1); EOSINOPHILS # (AUTO) 0.1 X10'3 (0-0.9); EOSINOPHILS % (AUTO) 0.6 % (0-6); HEMOGLOBIN 10.9 g/dl (14.0-17.9); LYMPHOCYTES # (AUTO) 0.6 X10'3 (1.1-4.8); LYMPHOCYTES % (AUTO) 4.3 % (21-51); MEAN CORPUSCULAR HEMOGLOBIN 29.5 PG (27.0-31.0); MEAN CORPUSCULAR VOLUME 89.5 FL (78-98); MEAN PLATELET VOLUME 6.2 FL (7.4-10.4); MONOCYTES % (AUTO) 6.8 % (2-12); NEUTROPHILS # (AUTO) 12.4 X10'3 (1.8-7.7); NEUTROPHILS % (AUTO) 87.6 % (42-75); PLATELET COUNT 477 X10'3 (140-440); RED BLOOD COUNT 3.69 X10'6 (4.70-6.10); RED CELL DISTRIBUTION WIDTH 13.9 % (11.5-14.5); WHITE BLOOD COUNT 14.2 X10'3 (4.5-11.0)
[2019-12-06 03:31] LABS: ALANINE AMINOTRANSFERASE 27 U/L (12-78); ALBUMIN 1.7 G/DL (3.4-5.0); ALBUMIN/GLOBULIN RATIO 0.4 (1.1-1.5); ALKALINE PHOSPHATASE 120 IU/L (46-116); AMYLASE 30 U/L (25-115); ANION GAP 7 (8-16); ASPARTATE AMINO TRANSFERASE 47 U/L (10-37); BILIRUBIN,TOTAL 0.6 MG/DL (0.1-1.0); BLOOD UREA NITROGEN 11 MG/DL (7-18); BUN/CREATININE RATIO 14.7 (5.4-32.0); CALCIUM 7.4 MG/DL (8.5-10.1); CHLORIDE 99 MMOL/L (99-107); CREATININE 0.75 MG/DL (0.60-1.10); GLUCOSE 108 MG/DL (70-104); LIPASE 115 U/L (73-393); MAGNESIUM 1.9 MG/DL (1.5-2.4); PHOSPHORUS 2.6 MG/DL (2.3-4.5); POTASSIUM 3.8 MMOL/L (3.5-5.1); SODIUM 134 MMOL/L (135-145); TOTAL CARBON DIOXIDE 27.6 MMOL/L (24-32); TOTAL PROTEIN 5.9 G/DL (6.4-8.2); eGFR > 90 ML/MIN
--- NOTE | 2019-12-06 06:24 | NUR ---
Problems reprioritized. Patient report given, questions answered & plan of care reviewed with PERI Dale.
--- NOTE | 2019-12-06 06:27 | NUR ---
Patient in room [facility]ON[facility]A 344. I have received report from Aura WHITT and had the opportunity to ask questions and assume patient care.
[2019-12-06] MEDS: normal saline 1000ml 1,000 ML IV SCH ×3 (06:55→20:19)
[2019-12-06] MEDS: thiamine 100mg tablet PO SCH (07:13)
[2019-12-06] MEDS: docusate sod 100mg capsule PO SCH ×2 (07:13→20:00)
[2019-12-06] MEDS: multivitamins, therapeutics tablet PO SCH (07:13)
[2019-12-06] MEDS: lactobacillus rhamnosus 10,000 MMU CELLS/CAPSULE PO SCH ×2 (07:13→20:00)
[2019-12-06] MEDS: folic acid 1mg tablet PO SCH (07:14)
[2019-12-06] MEDS: cefazolin/dext.iso 2gm/50ml 50 ML IV SCH ×2 (07:15→15:54)
[2019-12-06] MEDS: heparin, porcine 5000 units/ml vial SQ SCH ×2 (07:15→20:35)
[2019-12-06] MEDS: K and/or MAG REPLACEMENT MC SCH ×2 (07:24→20:00)
[2019-12-06 07:30] VITALS: BP 144/94
--- NOTE | 2019-12-06 08:49 | NUR ---
[id number] Re: Louie Huerta 344a +blood cultures gram+ cocci in cluster 25hrs R arm Aerobic bottle. Thanks Chito. This message sent to physician after notified by lab that patient had positive results.
[2019-12-06 11:36] VITALS: BP 143/94
[2019-12-06] MEDS ORDERED: pneumococcal 23-VAL P-sac vacc 25 mcg/0.5ml vial IMVAC ONE (14:15)
--- NOTE | 2019-12-06 15:03 | NUR ---
Initial: Pt admit w/ fever, intractable lower back pain, and positive for opiates, meth. DX MSSA sepsis w/ jada-sacral infection, hyponatremia, and encephalopathy w/ kiah hallucinations likely secondary to sepsis per MD. BLE psoriasis and general dry skin per EMR. PO 0-25% initial meals now mostly 0%. LBM 11/27 GI imaging showing obstipation, no obstruction, possible proctitis per MD notes. Pt is receiving routine colace, lactulose, relistor started 12/02 and second dose 12/04, and PRN MoM 12/04, dulcolax 12/03. Poor PO likely r/t constipation and ALOC. 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 Will continue to monitor for additional protein/bowel care needs this admit; ONS not appropriate given current PO hx w/ ALOC. If poor PO w/ ALOC persists may require alternative nutrition to meet nutrition needs and will also likely meet minimum malnutrition criteria at that time. Rec: 1. continue regular diet; encourage PO 2. monitor for ONS needs once PO improves 3. routine bowel care; opioid antagonist for obstipation per MD 4. weekly wts 5. IF poor PO persists w/ ALOC; consider alternative nutrition to meet pt needs given sepsis DX Addendum: 12/06/19 at [address] Amended: Links added.
--- NOTE | 2019-12-06 17:28 | NUR ---
Spoke with patient sister Elza, Patients family was very frustrated that she is unable to visit at this time. Patient was transferred to nursing retail supervisor.
[2019-12-06] MEDS: ondansetron/PF 4mg/2ml inj IV PRN (17:44)
--- NOTE | 2019-12-06 18:11 | NUR ---
Patient states he hasn't passed gas since this morning, patient states he feels more distended since this morning. Patient stated he would try to have bm, BSC placed in room and patient made aware to call for assistance upon using the BSC.
--- NOTE | 2019-12-06 18:33 | NUR ---
Problems reprioritized. Patient report given, questions answered & plan of care reviewed with Pat RN.
[2019-12-06 19:15] VITALS: BP 134/90
[2019-12-06 20:00] VITALS: BP 137/97
--- NOTE | 2019-12-06 20:15 | NUR ---
n/g tube placed by PERI Morales; immediate copious amt of green drainage out; tolerated procedure well Addendum: 12/07/19 at 0113 by Andree Sánchez RN Amended: Links added.
[2019-12-07] VITALS (11 sets, daily range): BP systolic 133–145; BP diastolic 83–96
[2019-12-07] MEDS: HYDROmorphone 1 mg/ml syringe IV PRN ×5 (00:13→21:57)
[2019-12-07] MEDS: ondansetron/PF 4mg/2ml inj IV PRN (00:13)
[2019-12-07] MEDS: cefazolin/dext.iso 2gm/50ml 50 ML IV SCH ×3 (00:14→16:42)
[2019-12-07] MEDS: lactulose 20gm/30ml cup PO SCH ×4 (02:00→20:00)
[2019-12-07 05:03] LABS: MAGNESIUM 2.3 MG/DL (1.5-2.4); PHOSPHORUS 4.4 MG/DL (2.3-4.5)
--- NOTE | 2019-12-07 07:00 | NUR ---
Patient in room [facility]A 344. I have received report from Pat RN and had the opportunity to ask questions and assume patient care.
[2019-12-07] MEDS: multivitamins, therapeutics tablet PO SCH (07:35)
[2019-12-07] MEDS: lactobacillus rhamnosus 10,000 MMU CELLS/CAPSULE PO SCH ×2 (07:35→20:00)
[2019-12-07] MEDS: thiamine 100mg tablet PO SCH (07:35)
[2019-12-07] MEDS: docusate sod 100mg capsule PO SCH ×2 (07:36→20:00)
[2019-12-07] MEDS: folic acid 1mg tablet PO SCH (07:36)
[2019-12-07] MEDS: methylnaltrexone br 12mg/0.6ml inj***SubQ only SQ SCH (07:37)
[2019-12-07] MEDS: heparin, porcine 5000 units/ml vial SQ SCH ×2 (07:41→20:09)
[2019-12-07] MEDS: K and/or MAG REPLACEMENT MC SCH ×2 (08:00→20:00)
--- NOTE | 2019-12-07 09:17 | NUR ---
[id number] re: 344a Louie Huerta +LOUIS R arm aerobic after 50 hours drawn 12/04 G+ cocci in clusters thanks Chito, Can we orders some chemistry as well message sent to hospitalist.
[2019-12-07] MEDS: normal saline 1000ml 1,000 ML IV SCH (10:33)
[2019-12-07] MEDS ORDERED: iohexol 300mg/ml 100ml inj. ONE (11:19)
[2019-12-07] MEDS: HYDROcodone/acetaminophen 10/325mg tab PO PRN (13:25)
[2019-12-07] MEDS ORDERED: fentaNYL/PF 50MCG/1 ML 2ML syringe ONE (16:00)
--- NOTE | 2019-12-07 18:54 | NUR ---
Problems reprioritized. Patient report given, questions answered & plan of care reviewed with Catherine Bone RN.
--- NOTE | 2019-12-07 19:13 | NUR ---
Patient in room [facility] 344. I have received report from PERI Dale and had the opportunity to ask questions and assume patient care. Addendum: 12/07/19 at 1913 by Danna Subramanian RN Amended: Links added.
[2019-12-07] MEDS ORDERED: dextrose 50%-water 50ml dispensing syringe IV PRN ×2 (20:35)
[2019-12-07] MEDS ORDERED: dextrose ORAL solution 15 GM/59 ML bottle PO PRN ×2 (20:35)
[2019-12-07] MEDS ORDERED: glucagon, human recombinant 1mg kit SUBCUT PRN (20:35)
[2019-12-08 00:15] VITALS: BP 133/87
[2019-12-08] MEDS: normal saline 1000ml 1,000 ML IV SCH ×3 (00:51→17:37)
[2019-12-08] MEDS: cefazolin/dext.iso 2gm/50ml 50 ML IV SCH ×3 (01:09→15:23)
[2019-12-08] MEDS: lactulose 20gm/30ml cup PO SCH ×4 (01:14→19:34)
[2019-12-08] MEDS: HYDROmorphone 1 mg/ml syringe IV PRN ×3 (02:15→13:07)
[2019-12-08 05:28] LABS: ALANINE AMINOTRANSFERASE 45 U/L (12-78); ALBUMIN 1.8 G/DL (3.4-5.0); ALBUMIN/GLOBULIN RATIO 0.4 (1.1-1.5); ALKALINE PHOSPHATASE 106 IU/L (46-116); AMYLASE 71 U/L (25-115); ANION GAP 6 (8-16); ASPARTATE AMINO TRANSFERASE 59 U/L (10-37); BILIRUBIN,TOTAL 0.4 MG/DL (0.1-1.0); BLOOD UREA NITROGEN 14 MG/DL (7-18); BUN/CREATININE RATIO 18.4 (5.4-32.0); CALCIUM 7.8 MG/DL (8.5-10.1); CHLORIDE 102 MMOL/L (99-107); CREATININE 0.76 MG/DL (0.60-1.10); GLUCOSE 96 MG/DL (70-104); LIPASE 338 U/L (73-393); MAGNESIUM 2.2 MG/DL (1.5-2.4); PHOSPHORUS 3.7 MG/DL (2.3-4.5); POTASSIUM 4.4 MMOL/L (3.5-5.1); SODIUM 137 MMOL/L (135-145); TOTAL CARBON DIOXIDE 28.6 MMOL/L (24-32); TOTAL PROTEIN 6.1 G/DL (6.4-8.2); eGFR > 90 ML/MIN
--- NOTE | 2019-12-08 06:10 | NUR ---
Patient in room [facility]ON[facility]A 344. I have received report from Mervat Bone RN and had the opportunity to ask questions and assume patient care.
--- NOTE | 2019-12-08 06:23 | NUR ---
Problems reprioritized. Patient report given, questions answered & plan of care reviewed with PERI Marquez.
[2019-12-08] MEDS: K and/or MAG REPLACEMENT MC SCH ×2 (07:16→20:00)
[2019-12-08] MEDS: folic acid 1mg tablet PO SCH (07:29)
[2019-12-08] MEDS: docusate sod 100mg capsule PO SCH ×2 (07:29→19:35)
[2019-12-08] MEDS: lactobacillus rhamnosus 10,000 MMU CELLS/CAPSULE PO SCH ×2 (07:29→19:35)
[2019-12-08] MEDS: multivitamins, therapeutics tablet PO SCH (07:29)
[2019-12-08] MEDS: thiamine 100mg tablet PO SCH (07:30)
[2019-12-08] MEDS: heparin, porcine 5000 units/ml vial SQ SCH ×2 (07:30→19:35)
[2019-12-08 09:51] VITALS: BP 129/87
[2019-12-08] MEDS ORDERED: pneumococcal 23-VAL P-sac vacc 25 mcg/0.5ml vial IMVAC ONE (10:00)
[2019-12-08] MEDS: HYDROcodone/acetaminophen 10/325mg tab PO PRN ×3 (10:43→23:22)
--- NOTE | 2019-12-08 11:04 | NUR ---
Reassessment: Per MD notes pt developed an ileus and CT of the abdomen and pelvis shows collection in the area of the right piriformis and right gluteus rose, IR to evaluate pt. Pt previously with poor PO intake on regular diet, documented with 0-25% PO intake not meeting nutrient needs. Pt now NPO with an NG tube in place, documented with 1700 mL gastric drainage output 12/06 per I&O. LBM 11/27. Pt receiving routine Colace, Lactulose, and Relistor and with PRN MoM and Dulcolax suppository, both administered. PRN Reglan added to med list 12/06, not yet given. Will continue to follow closely and make recommendations as appropriate. Rec: 1. advance to regular diet as medically indicated 2. monitor for ONS needs once PO improves with diet advancement 3. routine bowel care; opioid antagonist for obstipation per MD 4. weekly wts 5. IF poor PO persists w/ ALOC; consider alternative nutrition to meet pt needs given sepsis DX Addendum: 12/08/19 at [address] Amended: Links added.
[2019-12-08 12:07] VITALS: BP 142/77
--- NOTE | 2019-12-08 12:15 | NUR ---
Student Medication Administration: For this medication-pass time frame, all medication were reviewed, dispensed, administered and documented per hospital policy by [facility] Student Nurse. Student documentation: I have reviewed all interventions, assessments performed and documented by [facility] Student Nurse.
--- NOTE | 2019-12-08 18:07 | NUR ---
Problems reprioritized. Patient report given, questions answered & plan of care reviewed with Mervat Bone RN.
--- NOTE | 2019-12-08 18:24 | NUR ---
Patient in room [facility]A 344. I have received report from PERI WASHBURN and had the opportunity to ask questions and assume patient care. Addendum: 12/08/19 at 1824 by Danna Subramanian RN Amended: Links added.
[2019-12-08 20:00] VITALS: BP 137/86
[2019-12-08] MEDS: HYDROmorphone inj. 0.5 MG/0.5 ML DISP.SYRIN IV PRN (20:18)
[2019-12-09] VITALS: BP 133/92
[2019-12-09] MEDS: cefazolin/dext.iso 2gm/50ml 50 ML IV SCH ×3 (00:27→15:11)
[2019-12-09] MEDS: HYDROmorphone 1 mg/ml syringe IV PRN ×4 (00:50→19:14)
[2019-12-09] MEDS: lactulose 20gm/30ml cup PO SCH ×4 (05:13→19:30)
[2019-12-09] MEDS: metoclopramide 5 mg/ml inj IV PRN (05:14)
--- NOTE | 2019-12-09 05:50 | NUR ---
patient started on clear liquid diet yesterday and NG tube was clamped. patient noted with increase in pain in his stomach and tenderness, also was nauseous. started back on low intermittent suction and had an output of 1600 at this shift. pain medications norco and dilaudid been given with relief
[2019-12-09 06:20] LABS: BASOPHILS # (AUTO) 0.1 X10'3 (0-0.2); BASOPHILS % (AUTO) 0.5 % (0-1); EOSINOPHILS # (AUTO) 0.2 X10'3 (0-0.9); EOSINOPHILS % (AUTO) 1.4 % (0-6); HEMATOCRIT 35.2 % (42.0-52.0); HEMOGLOBIN 11.7 g/dl (14.0-17.9); LYMPHOCYTES # (AUTO) 1.1 X10'3 (1.1-4.8); LYMPHOCYTES % (AUTO) 9.1 % (21-51); MEAN CORPUSCULAR HEMOGLOBIN 30.5 PG (27.0-31.0); MEAN CORPUSCULAR HGB CONC 33.4 g/dL (33.0-36.5); MEAN CORPUSCULAR VOLUME 91.3 FL (78-98); MEAN PLATELET VOLUME 6.3 FL (7.4-10.4); MONOCYTES # (AUTO) 0.7 X10'3 (0-0.9); MONOCYTES % (AUTO) 5.6 % (2-12); NEUTROPHILS # (AUTO) 9.9 X10'3 (1.8-7.7); NEUTROPHILS % (AUTO) 83.4 % (42-75); PLATELET COUNT 617 X10'3 (140-440); RED BLOOD COUNT 3.85 X10'6 (4.70-6.10); RED CELL DISTRIBUTION WIDTH 14.1 % (11.5-14.5); WHITE BLOOD COUNT 11.9 X10'3 (4.5-11.0)
--- NOTE | 2019-12-09 06:31 | NUR ---
Problems reprioritized. Patient report given, questions answered & plan of care reviewed with PERI Ospina.
[2019-12-09 06:42] LABS: ALANINE AMINOTRANSFERASE 38 U/L (12-78); ALBUMIN 1.9 G/DL (3.4-5.0); ALBUMIN/GLOBULIN RATIO 0.4 (1.1-1.5); ALKALINE PHOSPHATASE 117 IU/L (46-116); ANION GAP 6 (8-16); ASPARTATE AMINO TRANSFERASE 53 U/L (10-37); BILIRUBIN,TOTAL 0.6 MG/DL (0.1-1.0); BLOOD UREA NITROGEN 10 MG/DL (7-18); BUN/CREATININE RATIO 14.1 (5.4-32.0); CALCIUM 7.7 MG/DL (8.5-10.1); CHLORIDE 102 MMOL/L (99-107); CREATININE 0.71 MG/DL (0.60-1.10); GLUCOSE 86 MG/DL (70-104); MAGNESIUM 2.1 MG/DL (1.5-2.4); POTASSIUM 4.1 MMOL/L (3.5-5.1); SODIUM 137 MMOL/L (135-145); TOTAL CARBON DIOXIDE 28.9 MMOL/L (24-32); TOTAL PROTEIN 6.3 G/DL (6.4-8.2); eGFR > 90 ML/MIN
[2019-12-09 07:03] LABS: PLATELET ESTIMATE INCREASED; TOTAL CELLS COUNTED 100
[2019-12-09 07:04] LABS: POLYCHROMASIA FEW
[2019-12-09 07:20] VITALS: BP 148/88
[2019-12-09] MEDS: K and/or MAG REPLACEMENT MC SCH ×2 (08:00→18:34)
[2019-12-09] MEDS: folic acid 1mg tablet PO SCH (08:33)
[2019-12-09] MEDS: multivitamins, therapeutics tablet PO SCH (08:33)
[2019-12-09] MEDS: docusate sod 100mg capsule PO SCH ×2 (08:33→19:30)
[2019-12-09] MEDS: methylnaltrexone br 12mg/0.6ml inj***SubQ only SQ SCH (08:33)
[2019-12-09] MEDS: thiamine 100mg tablet PO SCH (08:33)
[2019-12-09] MEDS: lactobacillus rhamnosus 10,000 MMU CELLS/CAPSULE PO SCH ×2 (08:33→19:30)
[2019-12-09] MEDS: heparin, porcine 5000 units/ml vial SQ SCH ×2 (08:34→19:29)
[2019-12-09] MEDS: normal saline 1000ml 1,000 ML IV SCH (08:41)
[2019-12-09 11:00] VITALS: BP 157/82
--- NOTE | 2019-12-09 15:35 | NUR ---
PAGER ID: [phone] MESSAGE: Phil Huerta 344A: wound you like patient to still have clears with the NG? destini 1300
[2019-12-09] MEDS: HYDROcodone/acetaminophen 10/325mg tab PO PRN ×2 (16:04→22:20)
[2019-12-09 18:15] VITALS: BP 142/82
--- NOTE | 2019-12-09 18:29 | NUR ---
Problems reprioritized. Patient report given, questions answered & plan of care reviewed with PERI Chavarria.
--- NOTE | 2019-12-09 18:33 | NUR ---
Patient in room [facility]ON[facility]A 344. I have received report from PERI Hines and had the opportunity to ask questions and assume patient care.
--- NOTE | 2019-12-09 21:30 | NUR ---
NG unclamped, brown drainage. 400 mL. Canister changed.
--- NOTE | 2019-12-09 22:20 | NUR ---
[place] 10/325mg 1 tab po administration. NG clamped. Pt states abdomen discomfort is better.
[2019-12-10] MEDS: cefazolin/dext.iso 2gm/50ml 50 ML IV SCH ×4 (00:07→23:58)
[2019-12-10] MEDS: HYDROmorphone 1 mg/ml syringe IV PRN ×4 (00:07→19:04)
[2019-12-10] MEDS: normal saline 1000ml 1,000 ML IV SCH ×2 (00:08→15:49)
--- NOTE | 2019-12-10 00:15 | NUR ---
NG tube unclamped to suction low intermittent. Pt states abdominal discomfort. No complaint of nausea.
[2019-12-10 00:22] VITALS: BP 148/84
[2019-12-10] MEDS: lactulose 20gm/30ml cup PO SCH ×4 (02:11→19:18)
--- NOTE | 2019-12-10 02:13 | NUR ---
Lactulose administered. NG clamped.
[2019-12-10] MEDS: magnesium hydroxide 30ml (MOM) UD suspension PO PRN (03:47)
--- NOTE | 2019-12-10 05:00 | NUR ---
Pt c/o abdominal discomfort. No nausea. NG unclamped. Addendum: 12/10/19 at 0556 by Aura Gardner RN NG to suction low intermittent
[2019-12-10 05:12] LABS: BASOPHILS % (AUTO) 0.4 % (0-1); EOSINOPHILS # (AUTO) 0.2 X10'3 (0-0.9); EOSINOPHILS % (AUTO) 1.7 % (0-6); HEMATOCRIT 32.7 % (42.0-52.0); MEAN CORPUSCULAR HEMOGLOBIN 30.6 PG (27.0-31.0); MEAN CORPUSCULAR HGB CONC 33.6 g/dL (33.0-36.5); MEAN PLATELET VOLUME 6.2 FL (7.4-10.4); MONOCYTES # (AUTO) 0.5 X10'3 (0-0.9); NEUTROPHILS # (AUTO) 8.5 X10'3 (1.8-7.7); NEUTROPHILS % (AUTO) 82.9 % (42-75); PLATELET COUNT 583 X10'3 (140-440); RED CELL DISTRIBUTION WIDTH 14.1 % (11.5-14.5); WHITE BLOOD COUNT 10.2 X10'3 (4.5-11.0)
[2019-12-10 05:30] LABS: ALANINE AMINOTRANSFERASE 40 U/L (12-78); ALBUMIN 1.9 G/DL (3.4-5.0); ALBUMIN/GLOBULIN RATIO 0.4 (1.1-1.5); ALKALINE PHOSPHATASE 114 IU/L (46-116); ANION GAP 4 (8-16); ASPARTATE AMINO TRANSFERASE 58 U/L (10-37); BILIRUBIN,TOTAL 0.6 MG/DL (0.1-1.0); BLOOD UREA NITROGEN 10 MG/DL (7-18); BUN/CREATININE RATIO 15.2 (5.4-32.0); CHLORIDE 100 MMOL/L (99-107); CREATININE 0.66 MG/DL (0.60-1.10); GLUCOSE 88 MG/DL (70-104); POTASSIUM 3.7 MMOL/L (3.5-5.1); SODIUM 135 MMOL/L (135-145); TOTAL CARBON DIOXIDE 30.8 MMOL/L (24-32); TOTAL PROTEIN 6.2 G/DL (6.4-8.2); eGFR > 90 ML/MIN
--- NOTE | 2019-12-10 06:17 | NUR ---
Problems reprioritized. Patient report given, questions answered & plan of care reviewed with PERI Hines.
[2019-12-10 06:25] LABS: ANISOCYTOSIS 1+; LARGE PLATELETS FEW; PLATELET ESTIMATE INCREASED
[2019-12-10] MEDS: docusate sod 100mg capsule PO SCH ×2 (07:32→19:18)
[2019-12-10] MEDS: lactobacillus rhamnosus 10,000 MMU CELLS/CAPSULE PO SCH ×2 (07:33→19:03)
[2019-12-10] MEDS: multivitamins, therapeutics tablet PO SCH (07:33)
[2019-12-10] MEDS: thiamine 100mg tablet PO SCH (07:33)
[2019-12-10] MEDS: heparin, porcine 5000 units/ml vial SQ SCH ×2 (07:33→19:03)
[2019-12-10] MEDS: folic acid 1mg tablet PO SCH (07:33)
[2019-12-10 07:35] VITALS: BP 156/88
[2019-12-10] MEDS: HYDROcodone/acetaminophen 10/325mg tab PO PRN ×3 (07:40→22:22)
[2019-12-10] MEDS: bisacodyl 10mg suppository rectal RC PRN (07:41)
[2019-12-10] MEDS: K and/or MAG REPLACEMENT MC SCH ×2 (08:00→18:37)
--- NOTE | 2019-12-10 09:02 | NUR ---
0730: clamped patients NG for medication administration. Patient had large BM a short while after that and requested to keep the NG clamped because he no longer felt abdominal pain. Per MD orders the NG will be clamped unless patient becomes uncomfortable or nauseous at any point. Will notify hospitalist during rounds and continue to monitor patient.
[2019-12-10 12:30] VITALS: BP 141/86
--- NOTE | 2019-12-10 14:28 | NUR ---
[facility] INFORMATION: REF: [id number] LOT: [id number] EXP: 07/14/2020
--- NOTE | 2019-12-10 18:02 | NUR ---
Problems reprioritized. Patient report given, questions answered & plan of care reviewed with PERI Chavarria.
[2019-12-10 18:15] VITALS: BP 146/85
--- NOTE | 2019-12-10 18:28 | NUR ---
Patient in room [facility]ON[facility]A 344. I have received report from PERI Hines and had the opportunity to ask questions and assume patient care.
[2019-12-10] MEDS: mag hydrox/Alum hydrox/simeth 30ml oral suspension PO PRN (22:49)
[2019-12-11] MEDS: HYDROmorphone 1 mg/ml syringe IV PRN (00:02)
[2019-12-11 00:24] VITALS: BP 155/76
[2019-12-11] MEDS: lactulose 20gm/30ml cup PO SCH ×4 (01:04→19:10)
[2019-12-11] MEDS: mag hydrox/Alum hydrox/simeth 30ml oral suspension PO PRN ×3 (02:30→19:11)
[2019-12-11] MEDS: HYDROcodone/acetaminophen 10/325mg tab PO PRN ×3 (04:49→19:11)
[2019-12-11 05:21] LABS: BASOPHILS # (AUTO) 0.1 X10'3 (0-0.2); BASOPHILS % (AUTO) 0.7 % (0-1); EOSINOPHILS # (AUTO) 0.1 X10'3 (0-0.9); EOSINOPHILS % (AUTO) 1.4 % (0-6); HEMATOCRIT 32.4 % (42.0-52.0); HEMOGLOBIN 10.9 g/dl (14.0-17.9); LYMPHOCYTES % (AUTO) 10.4 % (21-51); MEAN CORPUSCULAR HEMOGLOBIN 30.8 PG (27.0-31.0); MEAN CORPUSCULAR HGB CONC 33.6 g/dL (33.0-36.5); MEAN CORPUSCULAR VOLUME 91.7 FL (78-98); MEAN PLATELET VOLUME 5.9 FL (7.4-10.4); MONOCYTES # (AUTO) 0.5 X10'3 (0-0.9); MONOCYTES % (AUTO) 4.8 % (2-12); NEUTROPHILS % (AUTO) 82.7 % (42-75); PLATELET COUNT 550 X10'3 (140-440); RED BLOOD COUNT 3.53 X10'6 (4.70-6.10); RED CELL DISTRIBUTION WIDTH 14.5 % (11.5-14.5); WHITE BLOOD COUNT 9.6 X10'3 (4.5-11.0)
[2019-12-11 05:30] LABS: ALANINE AMINOTRANSFERASE 38 U/L (12-78); ALBUMIN/GLOBULIN RATIO 0.5 (1.1-1.5); ALKALINE PHOSPHATASE 114 IU/L (46-116); ANION GAP 2 (8-16); ASPARTATE AMINO TRANSFERASE 46 U/L (10-37); BILIRUBIN,TOTAL 0.5 MG/DL (0.1-1.0); BLOOD UREA NITROGEN 7 MG/DL (7-18); BUN/CREATININE RATIO 9.5 (5.4-32.0); CALCIUM 8.2 MG/DL (8.5-10.1); CHLORIDE 100 MMOL/L (99-107); CREATININE 0.74 MG/DL (0.60-1.10); GLUCOSE 93 MG/DL (70-104); SODIUM 135 MMOL/L (135-145); TOTAL CARBON DIOXIDE 33.4 MMOL/L (24-32); TOTAL PROTEIN 6.2 G/DL (6.4-8.2); eGFR > 90 ML/MIN
--- NOTE | 2019-12-11 06:37 | NUR ---
Problems reprioritized. Patient report given, questions answered & plan of care reviewed with PERI Webb and PERI Rutledge.
--- NOTE | 2019-12-11 06:39 | NUR ---
Patient in room [facility]ON[facility]A 344. I have received report from PERI Chavarria and had the opportunity to ask questions and assume patient care.
[2019-12-11 07:16] VITALS: BP 148/89
[2019-12-11] MEDS: cefazolin/dext.iso 2gm/50ml 50 ML IV SCH ×2 (07:40→16:05)
[2019-12-11] MEDS: multivitamins, therapeutics tablet PO SCH (07:43)
[2019-12-11] MEDS: docusate sod 100mg capsule PO SCH ×2 (07:43→19:10)
[2019-12-11] MEDS: lactobacillus rhamnosus 10,000 MMU CELLS/CAPSULE PO SCH ×2 (07:43→19:10)
[2019-12-11] MEDS: thiamine 100mg tablet PO SCH (07:43)
[2019-12-11] MEDS: folic acid 1mg tablet PO SCH (07:43)
[2019-12-11] MEDS: HYDROmorphone inj. 0.5 MG/0.5 ML DISP.SYRIN IV PRN ×3 (07:43→21:15)
[2019-12-11] MEDS: methylnaltrexone br 12mg/0.6ml inj***SubQ only SQ SCH (07:44)
[2019-12-11] MEDS: heparin, porcine 5000 units/ml vial SQ SCH ×2 (07:44→19:11)
[2019-12-11] MEDS: K and/or MAG REPLACEMENT MC SCH ×2 (07:45→18:36)
[2019-12-11 11:32] VITALS: BP 148/88
--- NOTE | 2019-12-11 14:22 | NUR ---
Reassessment: NG tube clamped at this time. PO diet has just been advanced to full liquid from clear liquid, documented with 25% PO intake since advancement. Per MD notes pt denies N/V and wants his diet to be advanced. Pt still receiving routine and PRN bowel care, LBM 12/09 documented as large. Sepsis score 0 per physical assessment. Will continue to follow closely and monitor need for ONS pending further trends in PO intake. Rec: 1. advance to regular diet as medically indicated 2. monitor for ONS needs pending trends in PO intake 3. routine bowel care; opioid antagonist for obstipation per MD 4. scaled weekly wts 5. IF poor PO persists; consider alternative nutrition to meet pt needs Addendum: 12/11/19 at [address] Amended: Links added.
[2019-12-11] MEDS: normal saline 1000ml 1,000 ML IV SCH (14:32)
[2019-12-11 18:00] VITALS: BP 145/86
[2019-12-11 18:15] VITALS: BP 145/86
--- NOTE | 2019-12-11 18:28 | NUR ---
Patient in room [facility]ON[facility]A 344. I have received report from PERI Rutledge and PERI Webb and had the opportunity to ask questions and assume patient care.
[2019-12-12] VITALS: BP 133/88
[2019-12-12] MEDS: cefazolin/dext.iso 2gm/50ml 50 ML IV SCH ×3 (01:13→15:56)
[2019-12-12] MEDS: HYDROmorphone inj. 0.5 MG/0.5 ML DISP.SYRIN IV PRN ×3 (01:14→13:55)
[2019-12-12] MEDS: lactulose 20gm/30ml cup PO SCH ×4 (02:17→20:00)
[2019-12-12] MEDS: mag hydrox/Alum hydrox/simeth 30ml oral suspension PO PRN (03:42)
[2019-12-12] MEDS: normal saline 1000ml 1,000 ML IV SCH ×2 (03:43→18:37)
[2019-12-12 05:05] LABS: ALANINE AMINOTRANSFERASE 32 U/L (12-78); ALBUMIN 2.2 G/DL (3.4-5.0); ALBUMIN/GLOBULIN RATIO 0.5 (1.1-1.5); ALKALINE PHOSPHATASE 108 IU/L (46-116); ANION GAP 3 (8-16); ASPARTATE AMINO TRANSFERASE 31 U/L (10-37); BILIRUBIN,TOTAL 0.5 MG/DL (0.1-1.0); BLOOD UREA NITROGEN 6 MG/DL (7-18); CHLORIDE 99 MMOL/L (99-107); CREATININE 0.75 MG/DL (0.60-1.10); GLUCOSE 95 MG/DL (70-104); POTASSIUM 4.1 MMOL/L (3.5-5.1); SODIUM 132 MMOL/L (135-145); TOTAL CARBON DIOXIDE 30.2 MMOL/L (24-32); TOTAL PROTEIN 6.6 G/DL (6.4-8.2); eGFR > 90 ML/MIN
[2019-12-12] MEDS: HYDROcodone/acetaminophen 10/325mg tab PO PRN ×2 (05:19→11:56)
--- NOTE | 2019-12-12 06:49 | NUR ---
Problems reprioritized. Patient report given, questions answered & plan of care reviewed with PERI Andrews.
--- NOTE | 2019-12-12 06:56 | NUR ---
Patient in room [facility]ON[facility]A 344. I have received report from Chavarria RN and had the opportunity to ask questions and assume patient care.
[2019-12-12 08:00] VITALS: BP 145/95
[2019-12-12] MEDS: K and/or MAG REPLACEMENT MC SCH ×2 (08:00→20:00)
[2019-12-12] MEDS: thiamine 100mg tablet PO SCH (08:23)
[2019-12-12] MEDS: docusate sod 100mg capsule PO SCH ×2 (08:23→20:00)
[2019-12-12] MEDS: lactobacillus rhamnosus 10,000 MMU CELLS/CAPSULE PO SCH ×2 (08:23→20:00)
[2019-12-12] MEDS: multivitamins, therapeutics tablet PO SCH (08:23)
[2019-12-12] MEDS: folic acid 1mg tablet PO SCH (08:23)
[2019-12-12] MEDS: heparin, porcine 5000 units/ml vial SQ SCH ×2 (08:24→19:55)
[2019-12-12 11:00] VITALS: BP 149/89
[2019-12-12] MEDS: ondansetron/PF 4mg/2ml inj IV PRN (15:56)
[2019-12-12] MEDS: simethicone 125mg capsule PO PRN (16:51)
[2019-12-12] MEDS: HYDROmorphone 1 mg/ml syringe IV PRN ×2 (17:59→22:35)
[2019-12-12 18:00] VITALS: BP 146/90
--- NOTE | 2019-12-12 18:30 | NUR ---
Patient in room [facility]ON[facility]A 344. I have received report from Aury WHITT and had the opportunity to ask questions and assume patient care.
--- NOTE | 2019-12-12 19:00 | NUR ---
pt refused to take his medication at this time. he wants the NG tube to be placed and will continue his medications tomorrow. will continue to monitor.
--- NOTE | 2019-12-12 19:05 | NUR ---
Problems reprioritized. Patient report given, questions answered & plan of care reviewed with PERI Mclaughlin. Pt c/o abdominal distension and pain to back and abd. Pain medication provided as needed, ambulated x2. Received MD orders for simethicone prn and Abd. X-ray. New orders to place NG tube after X-ray results.
[2019-12-12] MEDS: LORazepam 2 mg/ml vial IV PRN (19:55)
[2019-12-13] VITALS (7 sets, daily range): BP systolic 144–160; BP diastolic 91–102
[2019-12-13] MEDS: cefazolin/dext.iso 2gm/50ml 50 ML IV SCH ×3 (01:04→16:33)
[2019-12-13] MEDS: lactulose 20gm/30ml cup PO SCH ×4 (02:00→19:45)
[2019-12-13] MEDS: HYDROmorphone 1 mg/ml syringe IV PRN ×4 (02:45→22:46)
--- NOTE | 2019-12-13 06:24 | NUR ---
Problems reprioritized. Patient report given, questions answered & plan of care reviewed with Aury WHITT.
--- NOTE | 2019-12-13 06:29 | NUR ---
Patient in room [facility]ON[facility]A 344. I have received report from PERI Mclaughlin and had the opportunity to ask questions and assume patient care. Pt resting quietly, NG to right nares patent.
[2019-12-13] MEDS: methylnaltrexone br 12mg/0.6ml inj***SubQ only SQ SCH (07:49)
[2019-12-13] MEDS: heparin, porcine 5000 units/ml vial SQ SCH ×2 (07:50→19:44)
[2019-12-13] MEDS: lactobacillus rhamnosus 10,000 MMU CELLS/CAPSULE PO SCH ×2 (07:53→19:45)
[2019-12-13] MEDS: thiamine 100mg tablet PO SCH (07:53)
[2019-12-13] MEDS: folic acid 1mg tablet PO SCH (07:53)
[2019-12-13] MEDS: multivitamins, therapeutics tablet PO SCH (07:53)
[2019-12-13] MEDS: docusate sod 100mg capsule PO SCH ×2 (07:54→19:45)
[2019-12-13] MEDS: K and/or MAG REPLACEMENT MC SCH ×2 (08:00→19:45)
[2019-12-13] MEDS: normal saline 1000ml 1,000 ML IV SCH ×2 (09:53→22:47)
[2019-12-13] MEDS ORDERED: diatr meglu/diatrizoate 30ml oral sol.-(3 dose) bottle PO ONE (11:00)
[2019-12-13] MEDS: LORazepam 2 mg/ml vial IV PRN ×2 (11:17→19:39)
[2019-12-13] MEDS ORDERED: HYDROmorphone inj. 0.5 MG/0.5 ML DISP.SYRIN IV PRN (12:25)
[2019-12-13] MEDS ORDERED: HYDROcodone/acetaminophen 10/325mg tab PO PRN (12:30)
--- NOTE | 2019-12-13 18:24 | NUR ---
Problems reprioritized. Patient report given, questions answered & plan of care reviewed with PERI Marti. Pt continues to c/o abdominal discomfort. Dr Rice consulted pt this morning, new orders for abd CT scan. Pt remain NPO, NG tube in place 400ml of dark green fluids collected. educated pt about importance of cutting back on pain med and increase ambulations to help increase movement of the bowels.
--- NOTE | 2019-12-13 19:30 | NUR ---
pain level at 8 & informed he was not due for analgesics; pt reports that MD did tell him he needed to taper off the narcotics; pt requesting ativan Addendum: 12/14/19 at 0024 by Andree Sánchez RN Amended: Links added.
[2019-12-14] VITALS (22 sets, daily range): BP systolic 126–146; BP diastolic 80–95
[2019-12-14] MEDS: cefazolin/dext.iso 2gm/50ml 50 ML IV SCH ×4 (01:21→23:37)
[2019-12-14] MEDS: LORazepam 2 mg/ml vial IV PRN (01:21)
[2019-12-14] MEDS: lactulose 20gm/30ml cup PO SCH ×4 (02:00→20:00)
[2019-12-14] MEDS: HYDROmorphone 1 mg/ml syringe IV PRN (05:14)
[2019-12-14] MEDS: normal saline 1000ml 1,000 ML IV SCH ×2 (06:24→17:06)
--- NOTE | 2019-12-14 06:30 | NUR ---
Patient in room ALONDRA 344A. I have received report from PERI THAKUR and had the opportunity to ask questions and assume patient care.
[2019-12-14] MEDS: lactobacillus rhamnosus 10,000 MMU CELLS/CAPSULE PO SCH ×2 (07:21→20:00)
[2019-12-14] MEDS: docusate sod 100mg capsule PO SCH ×2 (07:21→20:00)
[2019-12-14] MEDS: folic acid 1mg tablet PO SCH (07:21)
[2019-12-14] MEDS: thiamine 100mg tablet PO SCH (07:22)
[2019-12-14] MEDS: multivitamins, therapeutics tablet PO SCH (07:22)
[2019-12-14] MEDS: K and/or MAG REPLACEMENT MC SCH ×2 (08:00→20:00)
[2019-12-14] MEDS: heparin, porcine 5000 units/ml vial SQ SCH ×2 (08:00→20:29)
[2019-12-14] MEDS ORDERED: ringers solution, lacted 1,000 ML IV SCH (09:36)
[2019-12-14] MEDS ORDERED: ringers solution, lacted 1,000 ML IV ONE (09:36)
[2019-12-14] MEDS ORDERED: ondansetron/PF 4mg/2ml inj IV PRN (09:40)
[2019-12-14] MEDS ORDERED: morphine 2 MG/ML inj. syringe IV PRN (09:40)
[2019-12-14] MEDS ORDERED: labetalol 20mg/4ml (5mg/ml) syringe IV PRN (09:40)
[2019-12-14] MEDS ORDERED: morphine 4 MG/ML inj SYRINge IV PRN (09:40)
[2019-12-14] MEDS ORDERED: hydrALAZINE 20mg/ml inj. IV PRN (09:40)
[2019-12-14] MEDS ORDERED: fentaNYL/PF 50MCG/1 ML 2ML syringe IV PRN ×2 (09:40)
[2019-12-14] MEDS ORDERED: LIDOcaine 1% 30ml preserv. free vial ONE (10:37)
[2019-12-14] MEDS ORDERED: BUPIVAcaine/PF 2.5 mg/ml (0.25%) 30ml vial ONE (10:37)
[2019-12-14] MEDS ORDERED: BUPIVACAINE liposomal/PF 13.3 MG/ML vial IM ONE (10:37)
[2019-12-14] MEDS ORDERED: BUPIVAcaine/PF 2.5mg/ml (0.25%) 10ml vial ONE (10:37)
[2019-12-14 10:42] LABS: MEAN CORPUSCULAR VOLUME 91.2 FL (78-98); MEAN PLATELET VOLUME 6.2 FL (7.4-10.4); RED CELL DISTRIBUTION WIDTH 14.7 % (11.5-14.5); WHITE BLOOD COUNT 9.9 X10'3 (4.5-11.0)
[2019-12-14 10:44] LABS: BASOPHILS % (AUTO) 0.5 % (0-1); EOSINOPHILS # (AUTO) 0.1 X10'3 (0-0.9); EOSINOPHILS % (AUTO) 1.1 % (0-6); HEMATOCRIT 33.9 % (42.0-52.0); HEMOGLOBIN 11.3 g/dl (14.0-17.9); LYMPHOCYTES % (AUTO) 9.8 % (21-51); MEAN CORPUSCULAR HEMOGLOBIN 30.5 PG (27.0-31.0); MEAN CORPUSCULAR HGB CONC 33.4 g/dL (33.0-36.5); MONOCYTES # (AUTO) 0.6 X10'3 (0-0.9); MONOCYTES % (AUTO) 5.6 % (2-12); NEUTROPHILS # (AUTO) 8.2 X10'3 (1.8-7.7); PLATELET COUNT 533 X10'3 (140-440); RED BLOOD COUNT 3.72 X10'6 (4.70-6.10)
[2019-12-14 11:04] LABS: ALANINE AMINOTRANSFERASE 14 U/L (12-78); ALBUMIN 2.4 G/DL (3.4-5.0); ALBUMIN/GLOBULIN RATIO 0.5 (1.1-1.5); ALKALINE PHOSPHATASE 101 IU/L (46-116); ANION GAP 8 (8-16); ASPARTATE AMINO TRANSFERASE 28 U/L (10-37); BILIRUBIN,TOTAL 0.6 MG/DL (0.1-1.0); BLOOD UREA NITROGEN 7 MG/DL (7-18); BUN/CREATININE RATIO 10.1 (5.4-32.0); CALCIUM 8.1 MG/DL (8.5-10.1); CHLORIDE 100 MMOL/L (99-107); CREATININE 0.69 MG/DL (0.60-1.10); GLUCOSE 79 MG/DL (70-104); POTASSIUM 4.1 MMOL/L (3.5-5.1); SODIUM 135 MMOL/L (135-145); TOTAL CARBON DIOXIDE 27.2 MMOL/L (24-32); TOTAL PROTEIN 7.1 G/DL (6.4-8.2); eGFR > 90 ML/MIN
[2019-12-14] MEDS ORDERED: sevoflurane 250ml liquid IH ONE (11:21)
[2019-12-14] MEDS ORDERED: midazolam 2 mg/2 ml injection ONE (11:21)
[2019-12-14] MEDS ORDERED: rocuronium 10mg/ml inj IV ONE ×2 (11:21→11:25)
[2019-12-14] MEDS ORDERED: neostigmine methylsulfate 1 MG/ML 10ml vial ONE (11:21)
[2019-12-14] MEDS ORDERED: fentaNYL /PF 50mcg/ml 5ml ampule ONE (11:21)
[2019-12-14] MEDS ORDERED: glycopyrrolate 0.2mg/ml inj ONE (11:21)
[2019-12-14] MEDS ORDERED: dexamethasone sod phosphate 10mg/ml inj ONE (11:21)
[2019-12-14] MEDS ORDERED: propofol inj 20 ML IV ONE (11:26)
[2019-12-14] MEDS ORDERED: LIDOcaine 2% (20mg/ml) 5ml vial ONE (11:26)
[2019-12-14] MEDS ORDERED: ceFOXitin 1000 MG inj ONE ×2 (11:43)
[2019-12-14] MEDS ORDERED: ondansetron/PF 4mg/2ml inj ONE (11:47)
--- NOTE | 2019-12-14 12:40 | NUR ---
RECEIVED FROM OR VIA BED ACCOMPANIED BY ANESTHESIOLOGIST DR PADILLA, REPORT GIVEN. N/G TUBE TO LOW INTERMITTENT SUCTION, DRAINING YELLOW FLUID. 18 GAUGE PICC LINE MARCIE PATENT AND RUNNING LR AT 100 ML/HR. PT DROWSY BUT AROUSES WITH NO COMPLAINT OF PAIN AT THIS TIME. [facility] DRESSING TO MIDLINE ABD CDI. F/C DRAINING CLEAR YELLOW FLUID, FREDDIE MOSS SOFT, SCD ON Addendum: 12/14/19 at 1421 by Cindy Menchaca RN Amended: Links added.
[2019-12-14] MEDS ORDERED: naloxone 0.4 mg/ml inj IV PRN (12:50)
[2019-12-14] MEDS: HYDROmorphone/NS 1 mg/ml CADD 50 ML IV SCH ×7 (13:00→23:00)
--- NOTE | 2019-12-14 14:40 | NUR ---
TRANSPORTED VIA BED WITH BEDRAILS IN UP POSITION, REPORT GIVEN. N/G TUBE INTACT, DRAINING YELLOW FLUID. 18 GAUGE PICC LINE MARCIE PATENT AND RUNNING LR AT 100 ML/HR. PT DROWSY BUT AROUSES WITH COMPLAINT OF PAIN AT LEVEL 5 AT THIS TIME. [employer] DRESSING TO MIDLINE ABD CDI. F/C DRAINING CLEAR YELLOW FLUID, MOSS, ABD SOFT, SCD ON, LEFT IN CARE OF SURGICAL NURSE
--- NOTE | 2019-12-14 15:37 | NUR ---
Reassessment: Pt now NPO w/ NG to suction s/p ex lap w/ massively distended small/large bowel down to sigmoid decompression; DX colonic pseudoobstruction without transition point, mass, small bowel obstruction, or mechanical obstruction per surgeon. Liquid stool suctioned from small intestine per surgeon note. NG 1250 and 1400ml output past 2 days per I&O. LBM 12/09 documented w/ BM today though RN reports no BM at this time; likely error. Pt receiving relistor w/ MoM and dulcolax PRN post-op. Pt 0-25% overall meals past 7 days w/ frequent diet changes and restrictive diets not meeting nutrition needs. IF NG to remain may benefit from trickle EN post-op to prevent bacterial translocation given poor nutrition status. Will continue to monitor. Rec: 1. advance to regular diet as medically indicated 2. monitor for ONS needs once PO 3. routine bowel care; opioid antagonist for obstipation per MD 4. scaled weekly wts 5. given prolonged poor nutrition; consider trickle EN to better meet needs post-op Addendum: 12/14/19 at [address] Amended: Links added.
--- NOTE | 2019-12-14 16:52 | NUR ---
Page Sent PAGER ID: [phone] MESSAGE: YULY 5494-RE: CHAIM WIN 344A...PT INR/PTT WAS ORDERED THIS AM, WAS SUPPOSED TO BE DRAWN IN OR...DO WE STILL NEED?
--- NOTE | 2019-12-14 18:02 | NUR ---
CALLED PTS , JERRELL WIN, ADVISED PT WAS BACK ON THE FLOOR AND DOING WELL.
--- NOTE | 2019-12-14 18:30 | NUR ---
Patient in room [facility] 344. I have received report from Radha WHITT and had the opportunity to ask questions and assume patient care.
--- NOTE | 2019-12-14 18:38 | NUR ---
Problems reprioritized. Patient report given, questions answered & plan of care reviewed with PERI CAMEJO.
--- NOTE | 2019-12-14 20:00 | NUR ---
O2 titrated down to 1L per NC Addendum: 12/15/19 at 0656 by Tabatha Hamilton RN Amended: Links added.
[2019-12-15] VITALS: BP 127/82
--- NOTE | 2019-12-15 01:00 | NUR ---
Dilaudid cadd readings at 1am were: 22 gives/47tries, total of 4.40 and residual of 34.8. Patient was in no pain at this time.
[2019-12-15] MEDS: lactulose 20gm/30ml cup PO SCH ×4 (02:00→20:04)
[2019-12-15] MEDS: normal saline 1000ml 1,000 ML IV SCH ×4 (02:24→23:38)
[2019-12-15] MEDS: HYDROmorphone/NS 1 mg/ml CADD 50 ML IV SCH ×11 (03:00→23:00)
--- NOTE | 2019-12-15 05:50 | NUR ---
Patients F/C dc'd w/o any complications. Patient voided 150cc in urinal, nadeen in color.
--- NOTE | 2019-12-15 06:05 | NUR ---
Problems reprioritized. Patient report given, questions answered & plan of care reviewed with Chito RN.
--- NOTE | 2019-12-15 06:30 | NUR ---
Patient in room [facility] 344. I have received report from Tabatha WHITT and had the opportunity to ask questions and assume patient care.
--- NOTE | 2019-12-15 06:30 | NUR ---
Patient in room [facility] 344. I have received report from PERI Dale and had the opportunity to ask questions and assume patient care.
[2019-12-15 08:00] VITALS: BP 138/82
[2019-12-15] MEDS: K and/or MAG REPLACEMENT MC SCH ×2 (08:00→19:56)
[2019-12-15 08:25] VITALS: BP 138/82
[2019-12-15] MEDS: docusate sod 100mg capsule PO SCH ×2 (08:58→20:05)
[2019-12-15] MEDS: cefazolin/dext.iso 2gm/50ml 50 ML IV SCH ×3 (08:58→23:38)
[2019-12-15] MEDS: thiamine 100mg tablet PO SCH (08:59)
[2019-12-15] MEDS: folic acid 1mg tablet PO SCH (08:59)
[2019-12-15] MEDS: multivitamins, therapeutics tablet PO SCH (08:59)
[2019-12-15] MEDS: lactobacillus rhamnosus 10,000 MMU CELLS/CAPSULE PO SCH ×2 (08:59→20:04)
[2019-12-15] MEDS: heparin, porcine 5000 units/ml vial SQ SCH ×2 (09:00→20:06)
[2019-12-15] MEDS: methylnaltrexone br 12mg/0.6ml inj***SubQ only SQ SCH (09:01)
[2019-12-15 11:00] VITALS: BP 129/84
--- NOTE | 2019-12-15 13:40 | NUR ---
Student documentation: I have reviewed and agree with all interventions, assessments performed and documented by Sally, nursing officer.
--- NOTE | 2019-12-15 13:41 | NUR ---
Student Medication Administration: For this medication-pass time frame, all medication were reviewed, dispensed, administered and documented per hospital policy by Sally nursing director.
--- NOTE | 2019-12-15 17:41 | NUR ---
rodriguez was discontinued at 1100 and he was bladder scanned at 1740 with 280 ml of urine present. Addendum: 12/15/19 at 1759 by Salyl ARRIAGA this note was documented on the wrong patient, disregard.
--- NOTE | 2019-12-15 18:30 | NUR ---
Patient in room [facility] 344. I have received report from Chito WHITT and had the opportunity to ask questions and assume patient care.
--- NOTE | 2019-12-15 18:45 | NUR ---
Problems reprioritized. Patient report given, questions answered & plan of care reviewed with Tabatha WHITT.
[2019-12-15 19:55] VITALS: BP 153/75
[2019-12-15 23:50] VITALS: BP 137/81
[2019-12-16] MEDS: HYDROmorphone/NS 1 mg/ml CADD 50 ML IV SCH ×12 (01:00→20:44)
[2019-12-16] MEDS: lactulose 20gm/30ml cup PO SCH ×4 (01:17→20:09)
--- NOTE | 2019-12-16 06:37 | NUR ---
Problems reprioritized. Patient report given, questions answered & plan of care reviewed with Chito Rn.
--- NOTE | 2019-12-16 06:51 | NUR ---
Patient in room [facility] 344. I have received report from Tabatha WHITT and had the opportunity to ask questions and assume patient care.
[2019-12-16] MEDS: cefazolin/dext.iso 2gm/50ml 50 ML IV SCH ×2 (07:54→16:15)
[2019-12-16 07:55] VITALS: BP 148/89
[2019-12-16] MEDS: docusate sod 100mg capsule PO SCH ×2 (07:55→20:09)
[2019-12-16] MEDS: multivitamins, therapeutics tablet PO SCH (07:55)
[2019-12-16] MEDS: lactobacillus rhamnosus 10,000 MMU CELLS/CAPSULE PO SCH ×2 (07:55→20:09)
[2019-12-16] MEDS: folic acid 1mg tablet PO SCH (07:55)
[2019-12-16] MEDS: thiamine 100mg tablet PO SCH (07:56)
[2019-12-16] MEDS: K and/or MAG REPLACEMENT MC SCH ×2 (08:00→20:00)
[2019-12-16] MEDS: heparin, porcine 5000 units/ml vial SQ SCH ×2 (08:01→20:10)
--- NOTE | 2019-12-16 08:13 | NUR ---
Student Medication Administration: For this medication-pass time frame, all medication were reviewed, dispensed, administered and documented per hospital policy by Sally Student Nurse.
[2019-12-16] MEDS: normal saline 1000ml 1,000 ML IV SCH ×2 (13:25→23:44)
--- NOTE | 2019-12-16 18:42 | NUR ---
Problems reprioritized. Patient report given, questions answered & plan of care reviewed with ALFREDO WHITT.
[2019-12-16 19:49] VITALS: BP 134/88
[2019-12-16] MEDS: metoclopramide 5 mg/ml inj IV PRN (20:09)
--- NOTE | 2019-12-16 21:00 | NUR ---
2100 cadd check 07/15 attempts 0.2mg given 49.8ml residual
[2019-12-17] VITALS: BP 136/87
[2019-12-17] MEDS: cefazolin/dext.iso 2gm/50ml 50 ML IV SCH ×3 (00:34→15:43)
[2019-12-17] MEDS: HYDROmorphone/NS 1 mg/ml CADD 50 ML IV SCH ×12 (01:00→23:00)
[2019-12-17] MEDS: lactulose 20gm/30ml cup PO SCH ×4 (02:22→19:09)
--- NOTE | 2019-12-17 07:47 | NUR ---
Patient in room [facility] 344. I have received report from PERI St and had the opportunity to ask questions and assume patient care.
[2019-12-17 08:00] VITALS: BP 137/92
[2019-12-17] MEDS: K and/or MAG REPLACEMENT MC SCH ×2 (08:00→20:00)
[2019-12-17] MEDS: multivitamins, therapeutics tablet PO SCH (08:19)
[2019-12-17] MEDS: folic acid 1mg tablet PO SCH (08:19)
[2019-12-17] MEDS: thiamine 100mg tablet PO SCH (08:19)
[2019-12-17] MEDS: lactobacillus rhamnosus 10,000 MMU CELLS/CAPSULE PO SCH ×2 (08:19→19:09)
[2019-12-17] MEDS: docusate sod 100mg capsule PO SCH ×2 (08:19→19:09)
[2019-12-17] MEDS: methylnaltrexone br 12mg/0.6ml inj***SubQ only SQ SCH (08:23)
[2019-12-17] MEDS: heparin, porcine 5000 units/ml vial SQ SCH ×2 (08:23→19:09)
[2019-12-17] MEDS: normal saline 1000ml 1,000 ML IV SCH (12:12)
--- NOTE | 2019-12-17 12:45 | NUR ---
Reassessment: Okay to clamp nasogastric tube and trial clear liquid diet per MD notes. Patient's diet has been advanced to clear liquid, pending documentation of PO intake. Passing small amount of flatus per MD note. LBM 12/09, pt receiving multiple bowel care medications. Limited nutrition interventions at this time given diet order. Will continue to follow closely. Rec: 1. advance to regular diet as medically indicated 2. monitor for ONS needs once PO 3. routine bowel care; opioid antagonist for obstipation per MD 4. scaled weekly wts 5. given prolonged poor nutrition; consider trickle EN to better meet needs post-op Addendum: 12/17/19 at [address] Amended: Links added.
[2019-12-17 18:00] VITALS: BP 135/90
[2019-12-17] MEDS: metoclopramide 5 mg/ml inj IV PRN (19:09)
[2019-12-17] MEDS: CADD PCA waste documentation MC PRN (20:39)
[2019-12-18] VITALS: BP 122/84
[2019-12-18] MEDS: normal saline 1000ml 1,000 ML IV SCH ×3 (00:24→16:50)
[2019-12-18] MEDS: HYDROmorphone/NS 1 mg/ml CADD 50 ML IV SCH ×12 (01:00→23:00)
[2019-12-18] MEDS: cefazolin/dext.iso 2gm/50ml 50 ML IV SCH ×4 (01:37→20:06)
[2019-12-18] MEDS: lactulose 20gm/30ml cup PO SCH ×4 (02:00→20:06)
--- NOTE | 2019-12-18 06:30 | NUR ---
Patient in room [facility] 344. I have received report from PERI St and had the opportunity to ask questions and assume patient care.
[2019-12-18] MEDS: folic acid 1mg tablet PO SCH (07:38)
[2019-12-18] MEDS: multivitamins, therapeutics tablet PO SCH (07:38)
[2019-12-18] MEDS: docusate sod 100mg capsule PO SCH ×2 (07:38→20:06)
[2019-12-18] MEDS: thiamine 100mg tablet PO SCH (07:38)
[2019-12-18] MEDS: lactobacillus rhamnosus 10,000 MMU CELLS/CAPSULE PO SCH ×2 (07:38→20:06)
[2019-12-18] MEDS: heparin, porcine 5000 units/ml vial SQ SCH ×2 (07:40→20:19)
[2019-12-18 08:00] VITALS: BP 134/99
[2019-12-18] MEDS: K and/or MAG REPLACEMENT MC SCH ×2 (08:00→20:00)
[2019-12-18 08:53] LABS: ALBUMIN 2.6 G/DL (3.4-5.0); ANION GAP 6 (8-16); BLOOD UREA NITROGEN 5 MG/DL (7-18); BUN/CREATININE RATIO 6.8 (5.4-32.0); CALCIUM 8.4 MG/DL (8.5-10.1); CHLORIDE 102 MMOL/L (99-107); CREATININE 0.73 MG/DL (0.60-1.10); GLUCOSE 99 MG/DL (70-104); POTASSIUM 4.2 MMOL/L (3.5-5.1); SODIUM 138 MMOL/L (135-145); eGFR > 90 ML/MIN
[2019-12-18] MEDS: ondansetron/PF 4mg/2ml inj IV PRN (09:27)
--- NOTE | 2019-12-18 10:40 | NUR ---
sometimes pt can ambulate independently and sometimes needs assistance depending on pain level. Addendum: 12/18/19 at 1054 by Jadiel ARRIAGA Amended: Links added.
--- NOTE | 2019-12-18 10:46 | NUR ---
pt description of bowel movement Addendum: 12/18/19 at 1054 by Jadiel De Jesus STUDENT -[employer] Amended: Links added.
--- NOTE | 2019-12-18 10:49 | NUR ---
pt states has a hx of psoriasis Addendum: 12/18/19 at 1054 by Jadiel De Jesus STUDENT [place] Amended: Links added.
--- NOTE | 2019-12-18 11:06 | NUR ---
Patient in room [facility]. I did receive report from and had the opportunity to ask questions and assume patient care.
[2019-12-18 12:00] VITALS: BP 131/95
[2019-12-18] MEDS: simethicone 125mg capsule PO PRN (12:44)
--- NOTE | 2019-12-18 18:45 | NUR ---
Problems reprioritized. Patient report given, questions answered & plan of care reviewed with PERI Eid. Pt c/o feeling bloated, no BM this shift; bowel sounds active, pt states passing gas. Encouraged patient to ambulate. pt took a shower and ambulated 300 feet x2.
[2019-12-18 19:00] VITALS: BP 108/87
[2019-12-19] VITALS: BP 139/93
[2019-12-19] MEDS: HYDROmorphone/NS 1 mg/ml CADD 50 ML IV SCH ×8 (01:00→15:00)
[2019-12-19] MEDS: lactulose 20gm/30ml cup PO SCH ×4 (02:00→20:00)
[2019-12-19] MEDS: normal saline 1000ml 1,000 ML IV SCH ×3 (03:44→23:08)
--- NOTE | 2019-12-19 06:32 | NUR ---
Patient in room [facility]. I have received report from PERI Eid and had the opportunity to ask questions and assume patient care.
--- NOTE | 2019-12-19 06:41 | NUR ---
Problems reprioritized. Patient report given, questions answered & plan of care reviewed with Denisse WHITT. Addendum: 12/19/19 at 0641 by Ragini Tyler RN Amended: Links added.
[2019-12-19 07:00] VITALS: BP 134/97
[2019-12-19] MEDS: K and/or MAG REPLACEMENT MC SCH ×2 (08:00→20:00)
[2019-12-19] MEDS: multivitamins, therapeutics tablet PO SCH (08:11)
[2019-12-19] MEDS: lactobacillus rhamnosus 10,000 MMU CELLS/CAPSULE PO SCH ×2 (08:11→20:45)
[2019-12-19] MEDS: docusate sod 100mg capsule PO SCH ×2 (08:11→20:00)
[2019-12-19] MEDS: folic acid 1mg tablet PO SCH (08:11)
[2019-12-19] MEDS: thiamine 100mg tablet PO SCH (08:12)
[2019-12-19] MEDS: heparin, porcine 5000 units/ml vial SQ SCH ×2 (08:14→20:46)
[2019-12-19] MEDS: methylnaltrexone br 12mg/0.6ml inj***SubQ only SQ SCH (08:18)
[2019-12-19] MEDS: cefazolin/dext.iso 2gm/50ml 50 ML IV SCH ×2 (08:21→16:42)
[2019-12-19 11:00] VITALS: BP 141/88
--- NOTE | 2019-12-19 15:03 | NUR ---
Student documentation: I have reviewed interventions, assessments performed and documented by David Student Nurse. Student Medication Administration: For this medication-pass time frame, all medication were reviewed, dispensed, administered and documented per hospital policy by David Peguero Nurse.
[2019-12-19] MEDS ORDERED: HYDROmorphone/NS 1 mg/ml CADD 50 ML IV SCH (17:05)
[2019-12-19] MEDS: CADD PCA waste documentation MC PRN (17:08)
[2019-12-19 18:00] VITALS: BP 149/95
[2019-12-19] MEDS: HYDROmorphone 1 mg/ml syringe IV PRN (18:42)
--- NOTE | 2019-12-19 18:51 | NUR ---
Problems reprioritized. Patient report given, questions answered & plan of care reviewed with PERI PEREA.
[2019-12-19] MEDS: simethicone 125mg capsule PO PRN (20:46)
[2019-12-20] VITALS: BP 157/95
[2019-12-20] MEDS: cefazolin/dext.iso 2gm/50ml 50 ML IV SCH ×3 (00:27→16:24)
[2019-12-20] MEDS: lactulose 20gm/30ml cup PO SCH ×4 (02:00→20:00)
[2019-12-20] MEDS: HYDROmorphone 1 mg/ml syringe IV PRN ×2 (02:14→20:05)
--- NOTE | 2019-12-20 06:34 | NUR ---
Patient in room [facility]. I have received report from PERI PEREA and had the opportunity to ask questions and assume patient care.
--- NOTE | 2019-12-20 06:36 | NUR ---
Problems reprioritized. Patient report given, questions answered & plan of care reviewed with BROOKE WHITT.
[2019-12-20 07:44] VITALS: BP 147/96
[2019-12-20] MEDS: K and/or MAG REPLACEMENT MC SCH ×2 (08:00→20:00)
[2019-12-20] MEDS: docusate sod 100mg capsule PO SCH ×2 (08:00→20:00)
[2019-12-20] MEDS: lactobacillus rhamnosus 10,000 MMU CELLS/CAPSULE PO SCH ×2 (08:13→20:11)
[2019-12-20] MEDS: thiamine 100mg tablet PO SCH (08:14)
[2019-12-20] MEDS: multivitamins, therapeutics tablet PO SCH (08:14)
[2019-12-20] MEDS: folic acid 1mg tablet PO SCH (08:14)
[2019-12-20] MEDS: heparin, porcine 5000 units/ml vial SQ SCH ×2 (08:20→20:11)
[2019-12-20] MEDS: normal saline 1000ml 1,000 ML IV SCH ×2 (08:24→16:27)
[2019-12-20 11:00] VITALS: BP 143/91
[2019-12-20] MEDS: oxyCODONE/APAP 10/325mg tablet PO PRN (11:30)
--- NOTE | 2019-12-20 17:24 | NUR ---
F/u (12/19): Pt advanced to regular diet first time off liquid diet since 9 days and overall inadequate PO past 2.5 weeks since admit not meeting nutrition needs post-op. Pt seen by RD and reports wt loss though no scaled wts this admit so unable to determine though pt does have mild temporal wasting visible evident. Given this pt meets severe malnutrition criteria at this time; MD notified. RD provided written/verbal malnutrition ed w/ ensure/vern ONS coupons, and RD contact information provided. RD also provided verbal high protein ed post-op. Pt reports appetite much improved at this time; eats more at breakfast and is agreeable to double eggs at breakfast. Dietary notified. Pt also is agreeable to gravy w/ meats since missing some teeth declining additional texture modifications, ensure enlives at lunch, and Vern smoothie BIDBD. MD notified. LBM 6/6 large w/ much gas per RN today; 5/10 abdominal pain today as well per MD. Pt declines additional food preferences at this time. Will monitor for regular diet tolerance and additional protein needs post-op. Rec: 1. continue regular diet; encourage PO 2. double eggs at breakfast; ensure enlive at lunch; Vern smoothie BIDBD 3. routine bowel care 4. thiamin, folic, MVI per MD 5. scaled weekly wts Addendum: 12/20/19 at [address]án[address] RD Amended: Links added.
[2019-12-20] MEDS: JUVEN Smoothie Arginine/Glut./Ca2+Bmb (Juven 19.3pkt) 240ml cup PO SCH (17:30)
--- NOTE | 2019-12-20 18:20 | NUR ---
Problems reprioritized. Patient report given, questions answered & plan of care reviewed with OFE RN.
[2019-12-20 20:00] VITALS: BP 132/86
[2019-12-21 00:09] VITALS: BP 139/88
[2019-12-21] MEDS: cefazolin/dext.iso 2gm/50ml 50 ML IV SCH ×4 (00:11→23:24)
[2019-12-21] MEDS: oxyCODONE/APAP 10/325mg tablet PO PRN ×2 (00:14→22:33)
[2019-12-21] MEDS: lactulose 20gm/30ml cup PO SCH ×4 (01:50→20:00)
[2019-12-21] MEDS: normal saline 1000ml 1,000 ML IV SCH ×3 (03:44→23:25)
[2019-12-21 05:14] LABS: BASOPHILS % (AUTO) 0.4 % (0-1); EOSINOPHILS # (AUTO) 0.2 X10'3 (0-0.9); EOSINOPHILS % (AUTO) 2.9 % (0-6); HEMATOCRIT 31.8 % (42.0-52.0); HEMOGLOBIN 10.5 g/dl (14.0-17.9); LYMPHOCYTES # (AUTO) 1.1 X10'3 (1.1-4.8); LYMPHOCYTES % (AUTO) 17.9 % (21-51); MEAN CORPUSCULAR HGB CONC 33.1 g/dL (33.0-36.5); MEAN CORPUSCULAR VOLUME 90.5 FL (78-98); MEAN PLATELET VOLUME 6.8 FL (7.4-10.4); MONOCYTES # (AUTO) 0.4 X10'3 (0-0.9); NEUTROPHILS # (AUTO) 4.3 X10'3 (1.8-7.7); NEUTROPHILS % (AUTO) 71.8 % (42-75); PLATELET COUNT 249 X10'3 (140-440); RED BLOOD COUNT 3.52 X10'6 (4.70-6.10); RED CELL DISTRIBUTION WIDTH 14.4 % (11.5-14.5)
[2019-12-21 05:20] LABS: ANION GAP 6 (8-16); BLOOD UREA NITROGEN 3 MG/DL (7-18); BUN/CREATININE RATIO 5.2 (5.4-32.0); CALCIUM 7.6 MG/DL (8.5-10.1); CHLORIDE 106 MMOL/L (99-107); CREATININE 0.58 MG/DL (0.60-1.10); GLUCOSE 92 MG/DL (70-104); POTASSIUM 3.4 MMOL/L (3.5-5.1); SODIUM 140 MMOL/L (135-145); TOTAL CARBON DIOXIDE 28.3 MMOL/L (24-32); eGFR > 90 ML/MIN
--- NOTE | 2019-12-21 06:46 | NUR ---
Patient in room [facility]A 344. I have received report from Pat RN and had the opportunity to ask questions and assume patient care.
--- NOTE | 2019-12-21 07:21 | NUR ---
Patient in room [facility]. I have received report from PERI THAKUR and had the opportunity to ask questions and assume patient care.
[2019-12-21] MEDS: JUVEN Smoothie Arginine/Glut./Ca2+Bmb (Juven 19.3pkt) 240ml cup PO SCH (07:30)
[2019-12-21 07:45] VITALS: BP 132/92
[2019-12-21] MEDS: folic acid 1mg tablet PO SCH (07:55)
[2019-12-21] MEDS: thiamine 100mg tablet PO SCH (07:55)
[2019-12-21] MEDS: multivitamins, therapeutics tablet PO SCH (07:57)
[2019-12-21] MEDS: heparin, porcine 5000 units/ml vial SQ SCH ×2 (07:59→20:20)
[2019-12-21] MEDS: methylnaltrexone br 12mg/0.6ml inj***SubQ only SQ SCH (08:00)
[2019-12-21] MEDS: K and/or MAG REPLACEMENT MC SCH ×2 (08:00→20:00)
[2019-12-21] MEDS: docusate sod 100mg capsule PO SCH ×2 (08:00→20:00)
[2019-12-21] MEDS: lactobacillus rhamnosus 10,000 MMU CELLS/CAPSULE PO SCH ×2 (08:16→20:20)
[2019-12-21] MEDS: HYDROmorphone 1 mg/ml syringe IV PRN ×2 (08:19→20:21)
[2019-12-21] MEDS ORDERED: ketorolac trometh. 30mg/ml inj. IM PRN (11:00)
[2019-12-21] MEDS ORDERED: potassium Cl 20 mEq SR tablet PO ONE (11:00)
[2019-12-21 12:08] VITALS: BP 121/78
[2019-12-21 12:28] VITALS: BP 141/88
--- NOTE | 2019-12-21 12:52 | NUR ---
F/u (12/20): Currently unable to obtain Vern r/t shortage; ensure high protein BIDBD to replace instead. RN is aware in process of ordering ensure high protein. Rec: 1. continue regular diet; encourage PO 2. double eggs at breakfast; ensure enlive at lunch; ensure high protein BIDBD; change ensure high protein to Vern once restocked 3. routine bowel care 4. thiamin, folic, MVI per MD 5. scaled weekly wts Addendum: 12/21/19 at [address] Amended: Links added.
[2019-12-21] MEDS: lactose-reduced food (Ensure Enlive) - 237ml bottle PO SCH (13:06)
[2019-12-21] MEDS: ketorolac trometh. 30mg/ml inj. IV PRN (14:19)
[2019-12-21] MEDS: lactose-reduced food (Ensure High Protein) 237ml bottle PO SCH (17:30)
--- NOTE | 2019-12-21 17:48 | NUR ---
Problems reprioritized. Patient report given, questions answered & plan of care reviewed with Denisse WHITT.
--- NOTE | 2019-12-21 18:30 | NUR ---
Patient in room [facility]. I have received report from BROOKE and had the opportunity to ask questions and assume patient care.
--- NOTE | 2019-12-21 18:55 | NUR ---
Problems reprioritized. Patient report given, questions answered & plan of care reviewed with PERI LUIS.
[2019-12-21 19:56] VITALS: BP 146/93
[2019-12-21 23:00] VITALS: BP 128/77
[2019-12-22] MEDS: lactulose 20gm/30ml cup PO SCH ×4 (02:00→19:38)
--- NOTE | 2019-12-22 06:30 | NUR ---
Patient in room [facility]. I have received report from PERI Morales and had the opportunity to ask questions and assume patient care.
--- NOTE | 2019-12-22 06:34 | NUR ---
Problems reprioritized. Patient report given, questions answered & plan of care reviewed with
--- NOTE | 2019-12-22 06:47 | NUR ---
Patient in room [facility]. I have received report from Carmen WHITT and had the opportunity to ask questions and assume patient care.
[2019-12-22] MEDS: K and/or MAG REPLACEMENT MC SCH ×2 (07:27→19:38)
[2019-12-22] MEDS: lactobacillus rhamnosus 10,000 MMU CELLS/CAPSULE PO SCH ×2 (07:30→19:29)
[2019-12-22] MEDS: multivitamins, therapeutics tablet PO SCH (07:31)
[2019-12-22] MEDS: folic acid 1mg tablet PO SCH (07:31)
[2019-12-22] MEDS: thiamine 100mg tablet PO SCH (07:32)
[2019-12-22] MEDS: heparin, porcine 5000 units/ml vial SQ SCH ×2 (07:33→19:30)
[2019-12-22] MEDS: oxyCODONE/APAP 10/325mg tablet PO PRN ×3 (07:39→23:05)
[2019-12-22] MEDS: cefazolin/dext.iso 2gm/50ml 50 ML IV SCH ×2 (07:40→15:21)
[2019-12-22] MEDS: lactose-reduced food (Ensure High Protein) 237ml bottle PO SCH ×2 (07:47→12:57)
[2019-12-22] MEDS: docusate sod 100mg capsule PO SCH ×2 (07:47→19:29)
[2019-12-22 08:50] VITALS: BP 132/84
[2019-12-22] MEDS: HYDROmorphone 1 mg/ml syringe IV PRN ×2 (11:14→19:46)
[2019-12-22] MEDS: normal saline 1000ml 1,000 ML IV SCH ×2 (11:20→21:56)
[2019-12-22 12:34] VITALS: BP 139/86
[2019-12-22] MEDS: lactose-reduced food (Ensure Enlive) - 237ml bottle PO SCH (12:57)
--- NOTE | 2019-12-22 14:41 | NUR ---
Student documentation: I have reviewed and agree with all interventions, assessments performed and documented by David, nursing home assistant administrator.
--- NOTE | 2019-12-22 14:41 | NUR ---
Student Medication Administration: For this medication-pass time frame, all medication were reviewed, dispensed, administered and documented per hospital policy by David instructor of nursing.
--- NOTE | 2019-12-22 15:25 | NUR ---
PATIENT STATED HE FEEL BIT DEPRESSED. Seen by Dr Green and Dr bruno, no new orders. Options explored with staff of new things to do as patient is to be here for 28 more days Word puzzle given and books . VSS. All cares given will continue to monitor.
--- NOTE | 2019-12-22 18:17 | NUR ---
Problems reprioritized. Patient report given, questions answered & plan of care reviewed with TRISTEN WHITT.
--- NOTE | 2019-12-22 18:39 | NUR ---
Patient in room [facility]. I have received report from Esperanza WHITT and had the opportunity to ask questions and assume patient care.
[2019-12-22 20:00] VITALS: BP 146/87
[2019-12-23] VITALS: BP 134/87
[2019-12-23] MEDS: cefazolin/dext.iso 2gm/50ml 50 ML IV SCH ×4 (00:06→23:34)
[2019-12-23] MEDS: lactulose 20gm/30ml cup PO SCH ×4 (02:00→19:31)
[2019-12-23] MEDS: ketorolac trometh. 30mg/ml inj. IV PRN ×2 (04:36→19:20)
--- NOTE | 2019-12-23 06:19 | NUR ---
Problems reprioritized. Patient report given, questions answered & plan of care reviewed with Esperanza WHITT.
--- NOTE | 2019-12-23 06:49 | NUR ---
Patient in room [facility]. I have received report from Keri WHITT and had the opportunity to ask questions and assume patient care.
[2019-12-23 07:00] VITALS: BP 132/92
[2019-12-23] MEDS: lactose-reduced food (Ensure High Protein) 237ml bottle PO SCH ×2 (07:30→12:30)
[2019-12-23] MEDS: K and/or MAG REPLACEMENT MC SCH ×2 (08:00→19:30)
[2019-12-23] MEDS: methylnaltrexone br 12mg/0.6ml inj***SubQ only SQ SCH (08:00)
[2019-12-23] MEDS: docusate sod 100mg capsule PO SCH ×2 (08:21→19:20)
[2019-12-23] MEDS: lactobacillus rhamnosus 10,000 MMU CELLS/CAPSULE PO SCH ×2 (08:21→19:20)
[2019-12-23] MEDS: multivitamins, therapeutics tablet PO SCH (08:21)
[2019-12-23] MEDS: thiamine 100mg tablet PO SCH (08:21)
[2019-12-23] MEDS: folic acid 1mg tablet PO SCH (08:21)
[2019-12-23] MEDS: oxyCODONE/APAP 10/325mg tablet PO PRN ×2 (08:23→15:34)
[2019-12-23] MEDS: heparin, porcine 5000 units/ml vial SQ SCH ×2 (08:24→19:19)
[2019-12-23] MEDS: normal saline 1000ml 1,000 ML IV SCH (10:24)
--- NOTE | 2019-12-23 11:06 | NUR ---
Reassessment: Pt with significant improvement in PO intake, up to average 75-100% since 12/19 with 100% PO intake since lunch 12/20 while receiving double eggs q breakfast and with 100% PO intake of ONS meeting nutrient needs. LBM 12/20, receiving routine bowel care. No further nutrition intervention implemented at this time. Will continue to follow closely. Rec: 1. continue regular diet; encourage PO 2. double eggs at breakfast; Ensure Enlive at lunch; Ensure High Protein BIDBD 3. routine bowel care 4. continue routine thiamine, folic, and MVI per MD 5. scaled weekly wts Addendum: 12/23/19 at [address] Amended: Links added.
[2019-12-23 12:00] VITALS: BP 134/85
[2019-12-23] MEDS: HYDROmorphone 1 mg/ml syringe IV PRN ×2 (12:29→21:19)
[2019-12-23] MEDS: lactose-reduced food (Ensure Enlive) - 237ml bottle PO SCH (12:30)
[2019-12-23] MEDS: magnesium hydroxide 30ml (MOM) UD suspension PO PRN (15:33)
--- NOTE | 2019-12-23 18:23 | NUR ---
Patient in room [facility]. I have received report from Esperanza WHITT and had the opportunity to ask questions and assume patient care.
--- NOTE | 2019-12-23 18:26 | NUR ---
patient up ambulating in unit [id number], appears stable. Seen by Dr Green [facility], patient medicated for pain with relief see EMAR. All cares given , no complaints. Report given to Keri WHITT
[2019-12-23 20:00] VITALS: BP 142/81
[2019-12-24 00:09] VITALS: BP 136/82
[2019-12-24] MEDS: lactulose 20gm/30ml cup PO SCH ×4 (02:00→19:28)
[2019-12-24] MEDS: HYDROmorphone 1 mg/ml syringe IV PRN ×2 (04:21→11:05)
--- NOTE | 2019-12-24 06:13 | NUR ---
Problems reprioritized. Patient report given, questions answered & plan of care reviewed with Richa RN.
[2019-12-24] MEDS: cefazolin/dext.iso 2gm/50ml 50 ML IV SCH ×2 (07:26→16:03)
[2019-12-24] MEDS: multivitamins, therapeutics tablet PO SCH (07:28)
[2019-12-24] MEDS: thiamine 100mg tablet PO SCH (07:28)
[2019-12-24] MEDS: lactose-reduced food (Ensure High Protein) 237ml bottle PO SCH ×2 (07:28→13:28)
[2019-12-24] MEDS: folic acid 1mg tablet PO SCH (07:28)
[2019-12-24] MEDS: lactobacillus rhamnosus 10,000 MMU CELLS/CAPSULE PO SCH ×2 (07:28→19:33)
[2019-12-24] MEDS: docusate sod 100mg capsule PO SCH ×2 (07:28→20:00)
[2019-12-24] MEDS: heparin, porcine 5000 units/ml vial SQ SCH ×2 (07:32→19:33)
[2019-12-24 08:00] VITALS: BP 128/84
[2019-12-24] MEDS: K and/or MAG REPLACEMENT MC SCH ×2 (08:00→19:29)
--- NOTE | 2019-12-24 11:30 | NUR ---
Changed patient's R arm PICC line dressing change, performed sterile procedure with pt wearing facemask and wearing sterile gloves. Cleaned with chlorahexadine and changed sanidisk and replaced tegaderm. patient tolerated well.
[2019-12-24 12:00] VITALS: BP 128/86
[2019-12-24] MEDS: lactose-reduced food (Ensure Enlive) - 237ml bottle PO SCH (13:28)
[2019-12-24] MEDS: oxyCODONE/APAP 10/325mg tablet PO PRN ×2 (16:03→22:18)
[2019-12-24 18:00] VITALS: BP 145/89
--- NOTE | 2019-12-24 18:19 | NUR ---
Problems reprioritized. Patient report given, questions answered & plan of care reviewed with PERI Vega.
--- NOTE | 2019-12-24 18:54 | NUR ---
Patient in room [facility]. I have received report from Richa WHITT and had the opportunity to ask questions and assume patient care.
[2019-12-25] VITALS: BP 140/85
[2019-12-25] MEDS: cefazolin/dext.iso 2gm/50ml 50 ML IV SCH ×3 (00:09→16:05)
[2019-12-25] MEDS: lactulose 20gm/30ml cup PO SCH ×3 (02:00→14:00)
[2019-12-25] MEDS: oxyCODONE/APAP 10/325mg tablet PO PRN ×3 (04:17→16:07)
--- NOTE | 2019-12-25 06:22 | NUR ---
Problems reprioritized. Patient report given, questions answered & plan of care reviewed with KERVIN RN.
[2019-12-25] MEDS: K and/or MAG REPLACEMENT MC SCH (08:00)
[2019-12-25] MEDS: heparin, porcine 5000 units/ml vial SQ SCH (08:00)
[2019-12-25] MEDS: methylnaltrexone br 12mg/0.6ml inj***SubQ only SQ SCH (08:00)
[2019-12-25] MEDS: thiamine 100mg tablet PO SCH (08:15)
[2019-12-25] MEDS: folic acid 1mg tablet PO SCH (08:16)
[2019-12-25] MEDS: multivitamins, therapeutics tablet PO SCH (08:17)
[2019-12-25] MEDS: docusate sod 100mg capsule PO SCH (08:17)
[2019-12-25] MEDS: lactobacillus rhamnosus 10,000 MMU CELLS/CAPSULE PO SCH (08:18)
[2019-12-25] MEDS: lactose-reduced food (Ensure High Protein) 237ml bottle PO SCH ×2 (08:20→13:20)
[2019-12-25 08:25] VITALS: BP 116/84
[2019-12-25] MEDS ORDERED: magnesium Cl slow-release 64mg tablet PO PRN (10:05)
[2019-12-25] MEDS ORDERED: potassium CL 10mEq/100ml bag 100 ML IV PRN (10:05)
[2019-12-25] MEDS ORDERED: K and/or MAG REPLACEMENT MC SCH (10:05)
[2019-12-25] MEDS ORDERED: potassium Cl 20 mEq SR tablet PO PRN ×2 (10:05)
[2019-12-25] MEDS ORDERED: magnesium 4gm in 100ml NS 100 ML IV PRN (10:05)
--- NOTE | 2019-12-25 10:20 | NUR ---
Patient in room [facility]. I have received report from KERVIN WHITT and had the opportunity to ask questions and assume patient care.
--- NOTE | 2019-12-25 10:24 | NUR ---
Problems reprioritized. Patient report given, questions answered & plan of care reviewed with PERI Wei.
[2019-12-25 11:00] VITALS: BP 122/78
--- NOTE | 2019-12-25 11:09 | NUR ---
REMOVED 11 ALIZE AND APPLIED 8 STERI STRIPS. TOLERATED WELL WILL CONTINUE TO MONITOR.
[2019-12-25] MEDS: lactose-reduced food (Ensure Enlive) - 237ml bottle PO SCH (13:19)
[2019-12-25] MEDS: ketorolac trometh. 30mg/ml inj. IV PRN (13:41)
--- NOTE | 2019-12-25 16:26 | NUR ---
REMOVED THE LAST 11 ALIZE, PT TOLERATED WELL.
--- NOTE | 2019-12-25 16:39 | NUR ---
Pt stated that he had a BM on 12/24/2019 Addendum: 12/25/19 at 1640 by Pat ARRIAGA Amended: Links added.
--- NOTE | 2019-12-25 16:44 | NUR ---
PAGER ID: [phone] MESSAGE: [id number] [id number] RE: AUDELIA PaytonB ARE YOU DISCHARGING THIS PT? NEEDS TO BE AT [facility] AT 1730.
[2019-12-25] MEDS ORDERED: SIME125C97 PO (16:51)
[2019-12-25] MEDS ORDERED: FOLI0.4T2 PO (16:51)
[2019-12-25] MEDS ORDERED: THIA50TA10 PO (16:51)
[2019-12-25] MEDS ORDERED: DOCU100C40 PO (16:51)
[2019-12-25] MEDS ORDERED: MULT-1179 PO (16:51)
[2019-12-25] MEDS ORDERED: LACT1CAP26 PO (16:51)
[2019-12-25] MEDS ORDERED: LACT10SO32 PO (16:51)
--- NOTE | 2019-12-25 17:10 | NUR ---
PATIENT DISCHARGED SAFELY WITH MOM. WILL BE GOING STRAIGHT OVER [facility]. PATIENT VERBALIZES UNDERSTANDING OF ALL DC INSTRUCTIONS.
== END 2019-12-25 17:36 | disposition home IV services (08) | DRG 710 ==
LOC: ER 18:53 → ED HOLD 22:07 → PCU 3S 22:45 → SUR 3N 12-05 07:00
PROVIDERS: ADMIT Internal Medicine; ATTEND Family Medicine
PROC: BW281ZZ Computerized Tomography (CT Scan) of Head using Low Osmolar Contrast (ICD-10-PCS; 2019-12-03)
PROC: 0H96X0Z Drainage of Back Skin with Drainage Device, External Approach (ICD-10-PCS; 2019-12-07)
PROC: BW211ZZ Computerized Tomography (CT Scan) of Abdomen and Pelvis using Low Osmolar Contrast (ICD-10-PCS; 2019-12-07)
PROC: 3E0234Z Introduction of Serum, Toxoid and Vaccine into Muscle, Percutaneous Approach (ICD-10-PCS; 2019-12-08)
PROC: 02HV33Z Insertion of Infusion Device into Superior Vena Cava, Percutaneous Approach (ICD-10-PCS; 2019-12-10)
PROC: B548ZZA Ultrasonography of Superior Vena Cava, Guidance (ICD-10-PCS; 2019-12-10)
PROC: 3E0T3BZ Introduction of Anesthetic Agent into Peripheral Nerves and Plexi, Percutaneous Approach (ICD-10-PCS; 2019-12-14)
PROC: 0D980ZZ Drainage of Small Intestine, Open Approach (ICD-10-PCS; principal; 2019-12-14 11:21)
DX: A41.01 Sepsis due to Methicillin susceptible Staphylococcus aureus (principal); E43 Unspecified severe protein-calorie malnutrition; G93.41 Metabolic encephalopathy; K56.609 Unspecified intestinal obstruction, unspecified as to partial versus complete obstruction; M60.08 Infective myositis, other site; K56.7 Ileus, unspecified; E87.1 Hypo-osmolality and hyponatremia; D64.9 Anemia, unspecified; M86.8X8 Other osteomyelitis, other site; F15.90 Other stimulant use, unspecified, uncomplicated; F17.200 Nicotine dependence, unspecified, uncomplicated; I10 Essential (primary) hypertension; J45.909 Unspecified asthma, uncomplicated; M46.1 Sacroiliitis, not elsewhere classified; L02.818 Cutaneous abscess of other sites; Z86.14 Personal history of Methicillin resistant Staphylococcus aureus infection; Z68.29 Body mass index [BMI] 29.0-29.9, adult; Z83.3 Family history of diabetes mellitus; Z23 Encounter for immunization; Z79.899 Other long term (current) drug therapy
CPT/HCPCS: 36415; 36573; 49406; 70470; 74018; 74176; 74177; 76937; 80048; 80053; 80202; 80305; 80320; 81001; 82140; 82150; 82948; 83605; 83690; 83735; 84100; 84132; 84145; 85025; 85610; 87040; 87070; 87077; 87081; 87186; 90732; 93005; 93306; 94667; 94760; 96374; 97110; 97116; 97161; 97530; 97535; 99285; A4215; A4618; A7000; C9290; G0378; J0694; J0696; J1100; J1170; J1644; J1885; J2001; J2060; J2212; J2250; J2270; J2405; J2704; J2710; J2765; J3010; J3370; J3490; J7030; J7040; J7120; Q9963; Q9967

== ENCOUNTER 2019-12-29 08:35 | Emergency (ER) | payer MEDICAID, OTHER ==
[~2019-12-29] VITALS: Ht 188 cm; Wt 86.4 kg
[~2019-12-29 08:35] MED LIST changes: +DOCU100C40 PO; +FOLI0.4T2 PO; +LACT10SO32 PO; +LACT1CAP26 PO; +MULT-1179 PO; +SIME125C97 PO; +THIA50TA10 PO
[2019-12-29 10:08] LABS: BASOPHILS # (AUTO) 0.1 X10'3 (0-0.2); BASOPHILS % (AUTO) 0.7 % (0-1); EOSINOPHILS # (AUTO) 0.3 X10'3 (0-0.9); EOSINOPHILS % (AUTO) 3.6 % (0-6); HEMATOCRIT 33.3 % (42.0-52.0); LYMPHOCYTES # (AUTO) 1.3 X10'3 (1.1-4.8); LYMPHOCYTES % (AUTO) 16.8 % (21-51); MEAN CORPUSCULAR HEMOGLOBIN 30.4 PG (27.0-31.0); MEAN CORPUSCULAR HGB CONC 33.1 g/dL (33.0-36.5); MEAN PLATELET VOLUME 6.1 FL (7.4-10.4); MONOCYTES # (AUTO) 0.6 X10'3 (0-0.9); MONOCYTES % (AUTO) 7.6 % (2-12); NEUTROPHILS # (AUTO) 5.7 X10'3 (1.8-7.7); NEUTROPHILS % (AUTO) 71.3 % (42-75); PLATELET COUNT 379 X10'3 (140-440); RED BLOOD COUNT 3.62 X10'6 (4.70-6.10); RED CELL DISTRIBUTION WIDTH 15.6 % (11.5-14.5)
[2019-12-29 10:25] LABS: ALANINE AMINOTRANSFERASE 23 U/L (12-78); ALBUMIN 3.1 G/DL (3.4-5.0); ALBUMIN/GLOBULIN RATIO 0.6 (1.1-1.5); ALKALINE PHOSPHATASE 87 IU/L (46-116); ANION GAP 11 (8-16); ASPARTATE AMINO TRANSFERASE 24 U/L (10-37); BILIRUBIN,TOTAL 0.3 MG/DL (0.1-1.0); BLOOD UREA NITROGEN 14 MG/DL (7-18); BUN/CREATININE RATIO 18.7 (5.4-32.0); CALCIUM 8.9 MG/DL (8.5-10.1); CHLORIDE 105 MMOL/L (99-107); CREATININE 0.75 MG/DL (0.60-1.10); GLUCOSE 98 MG/DL (70-104); POTASSIUM 4.1 MMOL/L (3.5-5.1); SODIUM 142 MMOL/L (135-145); TOTAL CARBON DIOXIDE 26.5 MMOL/L (24-32); TOTAL PROTEIN 8.1 G/DL (6.4-8.2); eGFR > 90 ML/MIN
[2019-12-29] MEDS ORDERED: HYDR-3686 PO (10:33)
[2019-12-29] MEDS ORDERED: IBUP-1984 PO (10:33)
[2019-12-29] MEDS ORDERED: ACET-1008 PO (10:33)
[2019-12-29 11:03] VITALS: BP 143/96
== END 2019-12-29 11:06 | disposition home or self-care (01) ==
LOC: ER 08:35
DX: M54.5 Low back pain (principal); M62.89 Other specified disorders of muscle; I10 Essential (primary) hypertension; J45.909 Unspecified asthma, uncomplicated; F17.200 Nicotine dependence, unspecified, uncomplicated; F15.90 Other stimulant use, unspecified, uncomplicated; Z86.14 Personal history of Methicillin resistant Staphylococcus aureus infection; Z48.00 Encounter for change or removal of nonsurgical wound dressing; Z72.89 Other problems related to lifestyle; Z79.899 Other long term (current) drug therapy
CPT/HCPCS: 36415; 80053; 85025; 99283

== ENCOUNTER 2021-12-22 20:30 | Emergency (ER) | payer MEDICAID, OTHER ==
[~2021-12-22] VITALS: Ht 188 cm; Wt 93.8 kg
[~2021-12-22 20:30] MED LIST changes: -FOLI0.4T2 PO; -MULT-1179 PO; +MULT-25 PO
[2021-12-22 21:10] VITALS: BP 141/98
== END 2021-12-23 05:04 | disposition left against medical advice (07) ==
LOC: ER 20:30
DX: S81.819A Laceration without foreign body, unspecified lower leg, initial encounter (principal); Z53.21 Procedure and treatment not carried out due to patient leaving prior to being seen by health care provider; X58.XXXA Exposure to other specified factors, initial encounter; Y93.89 Activity, other specified; Y92.89 Other specified places as the place of occurrence of the external cause; Y99.8 Other external cause status

== ENCOUNTER 2023-09-01 09:10 | Emergency (ER) | payer MEDICAID ==
[~2023-09-01] VITALS: Ht 188 cm; Wt 109.1 kg
[~2023-09-01 09:10] MED LIST changes: -LACT10SO32 PO; +LACT10SO78 PO
[2023-09-01 09:32] VITALS: TEMP 97
[2023-09-01 10:41] LABS: BASOPHILS % (AUTO) 0.2 % (0-1); EOSINOPHILS # (AUTO) 0.2 X10'3 (0-0.9); EOSINOPHILS % (AUTO) 2.3 % (0-6); HEMATOCRIT 46.3 % (42.0-52.0); HEMOGLOBIN 15.4 g/dl (14.0-17.9); LYMPHOCYTES # (AUTO) 1.5 X10'3 (1.1-4.8); MEAN CORPUSCULAR HEMOGLOBIN 30.4 PG (27.0-31.0); MEAN CORPUSCULAR HGB CONC 33.2 g/dL (33.0-36.5); MEAN CORPUSCULAR VOLUME 91.5 FL (78-98); MEAN PLATELET VOLUME 6.4 FL (7.4-10.4); MONOCYTES # (AUTO) 0.5 X10'3 (0-0.9); NEUTROPHILS # (AUTO) 5.7 X10'3 (1.8-7.7); NEUTROPHILS % (AUTO) 72.5 % (42-75); PLATELET COUNT 344 X10'3 (140-440); RED BLOOD COUNT 5.06 X10'6 (4.70-6.10); RED CELL DISTRIBUTION WIDTH 13.5 % (11.5-14.5); WHITE BLOOD COUNT 7.9 X10'3 (4.5-11.0)
[2023-09-01 10:54] LABS: ALANINE AMINOTRANSFERASE 27 U/L (12-78); ALBUMIN 3.4 G/DL (3.4-5.0); ALBUMIN/GLOBULIN RATIO 0.9 (1.1-1.5); ALKALINE PHOSPHATASE 87 IU/L (46-116); ANION GAP 7 (8-16); ASPARTATE AMINO TRANSFERASE 18 U/L (10-37); BILIRUBIN,TOTAL 0.5 MG/DL (0.1-1.0); BLOOD UREA NITROGEN 12 MG/DL (7-18); BUN/CREATININE RATIO 13.8 (10.0-20.0); CALCIUM 7.9 MG/DL (8.5-10.1); CHLORIDE 103 MMOL/L (99-107); CREATININE 0.87 MG/DL (0.60-1.10); GLUCOSE 104 MG/DL (70-104); POTASSIUM 4.2 MMOL/L (3.5-5.1); SODIUM 140 MMOL/L (135-145); TOTAL CARBON DIOXIDE 29.9 MMOL/L (24-32); TOTAL PROTEIN 7.4 G/DL (6.4-8.2); eCRCL 118 ML/MIN; eGFR > 90 ML/MIN
[2023-09-01 11:07] LABS: BILIRUBIN,DIRECT 0.1 MG/DL (0-0.3); LIPASE 44 U/L (16-77); MAGNESIUM 2.1 MG/DL (1.5-2.4)
[2023-09-01 11:10] LABS: APTT 28 SECONDS (22-32); PROTHROMBIN TIME 10.4 SECONDS (9.0-12.0)
[2023-09-01 11:48] LABS: PRO BRAIN NATRIURETIC PEPTIDE < 30 PG/ML (0-125)
[2023-09-01 11:59] VITALS: BP 122/87; PULSE 92; RESP 18; O2SAT 96
[2023-09-01] MEDS: aspirin 81mg tab.chew PO ONE (14:13)
== END 2023-09-01 14:18 | disposition home or self-care (01) ==
LOC: ER 09:11
DX: R07.9 Chest pain, unspecified (principal); I10 Essential (primary) hypertension; J45.909 Unspecified asthma, uncomplicated; F12.10 Cannabis abuse, uncomplicated; Z86.14 Personal history of Methicillin resistant Staphylococcus aureus infection; Z79.899 Other long term (current) drug therapy
CPT/HCPCS: 36415; 71045; 71250; 80048; 80076; 83690; 83735; 83880; 84484; 85025; 85610; 85730; 93005; 99285